=== PATIENT | female | born 1970 | race Caucasian/White ===

== ENCOUNTER → 2018-02-07 | Outpatient (CLI) | payer MEDICAID, MEDICARE ==
--- NOTE | 2018-02-07 11:29 | RADIOLOGY REPORT (SQ) ---
EXAM DESCRIPTION: MRI LT LOWER JOINT WITHOUT COMPLETED DATE/TIME: 02/07/2018 10:48 am REASON FOR STUDY: PAIN IN LEFT HIP (M25.552) M25.552 PAIN IN LEFT HIP PAIN IN LEFT HIP (M25.552) M25.552 PAIN IN LEFT HIP left hip grinding, clicking, stiffness numbness COMPARISON: 05/08/2014 MRI left hip TECHNIQUE: [employer] images acquired and stored on PACS. Multiplanar images to include fat sensitive s equences as T1, fluid sensitive sequences as T2/STIR and gradient echo sequences. Large FOV fat and f luid sensitive sequences include pelvis and opposite hip. LIMITATIONS: None. FINDINGS: BONE CORTEX AND MARROW: No generalized marrow replacement. No occult fracture. No worriso me bone lesions. LEFT HIP: FEMORAL HEAD: No occult fracture. Minimal osteophyte formation along the periphery of the left femor al head and bony acetabulum. Normal sphericity of femoral head/neck junction. No acetabular dysplasi a. No evidence femoroacetabular impingement. No significant effusion. ACETABULUM: No acetabular dysplasia. No subchondral cysts. LABRUM: No delamination. No paralabral cysts. The anterior superior labral tear seen on hip MR arth rogram 05/08/2014 is difficult to visualize on today's study. TROCHANTER: No trochanteric bursal effusion. No edema/fluid at the insertions of the gluteus medius and gluteus minimus. RIGHT HIP: Limited evaluation. No worrisome bone lesions. No significant effusion. PELVIS, LOWER LUMBAR SPINE, SACROILIAC JOINTS: PELVIS : No insufficiency/stress fractures. No significant degenerative changes. Sacroiliac joints normal. L SPINE: Limited view, unremarkable MUSCLES AND SOFT TISSUES: Adductors and piriformis normal. Abductors and greater trochanteric bursa n ormal without edema or fluid. Iliopsoas bursa without fluid. Hamstring attachments without edema or t ear. PELVIC SOFT TISSUES: No masses or adenopathy. Post hysterectomy SCIATIC NERVE: Identified, without masses or abnormal signal. OTHER: No other significant finding. IMPRESSION: Labral tear left hip seen on MR arthrogram 05/08/2014 is not identified on today's exam. No left hip paralabral cyst, left hip joint effusion or greater trochanteric effusion. Minimal left hip joint space narrowing and osteophyte formation TECHNICAL DOCUMENTATION: JOB ID: [id number] [employer] [employer]- All Rights Reserved Reading location - IP/workstation name: [email or web address]
== END ==
LOC: RAD 09:57
PROVIDERS: ATTEND Physician Assistant
DX: M25.552 Pain in left hip (principal)

== ENCOUNTER 2018-06-11 17:37 | Inpatient (IN) | payer MEDICARE ==
--- NOTE | 2018-06-11 18:17 | ER Document Report ---
ED Medical Screen (RME) - General Chief Complaint: Rectal Bleeding Stated Complaint: BLOODY STOOL Time Seen by Provider: 06/11/18 18:09 Primary Care Provider: TYRESE CONCEPCION PA [Primary Care Provider] - Follow up as needed Notes: RAPID MEDICAL EVALUATION DISCLOSURE I have seen this patient as part of a Rapid Medical Evaluation and, if applicable, placed any initially appropriate orders. The patient will be seen and fully evaluated, including a full history and physical exam, by a provider (in Main ED or Fast Track) when a room becomes available. 48-year-old female PMH COPD here with complaints of bright red bloody stools that started this morning. She has had about 6-7 bloody stools thus far. She has started to feel lightheaded and has also been having some epigastric burning sensation and lower abdominal cramping as of earlier today. Does not take any blood thinners. No previous history of GI bleed, liver disease, peptic ulcers, varices, or hemorrhoids. She does not drink daily but did have 2 glasses of [place] rum and coke last night. EXAM Mild epigastric TTP Mild rapp lower quadrant TTP No peritoneal signs TRAVEL OUTSIDE OF THE [place] IN LAST 30 DAYS: No - Related Data Allergies/Adverse Reactions: codeine [Codeine] Adverse Reaction (Verified 06/11/18 17:39) Past Medical History - Past Medical History Cardiac Medical History: Reports: Hx Hypercholesterolemia, Hx Hypertension Denies: Hx Coronary Artery Disease, Hx Heart Attack Pulmonary Medical History: Reports: Hx Bronchitis, Hx COPD, Hx Pneumonia Denies: Hx Asthma, Hx Tuberculosis Neurological Medical History: Reports: Hx Seizures - 2010. Denies: Hx Cerebrovascular Accident Endocrine Medical History: Reports: Hx Diabetes Mellitus Type 2 Renal/ Medical History: Denies: Hx Peritoneal Dialysis Musculoskeltal Medical History: Reports Hx Arthritis Psychiatric Medical History: Reports: Hx Bipolar Disorder, Hx Depression Past Surgical History: Reports: Hx Hysterectomy, Hx Orthopedic Surgery - Cervical fusion. Denies: Hx Pacemaker - Immunizations Hx Diphtheria, Pertussis, Tetanus Vaccination: No Physical Exam - Vital signs Vitals: Temp Pulse Resp BP Pulse Ox 98.8 F 88 18 150/90 H 99 06/11/18 17:49 06/11/18 17:49 06/11/18 17:49 06/11/18 17:49 06/11/18 17:49 Course - Vital Signs Vital signs: Temp Pulse Resp BP Pulse Ox 98.8 F 88 18 150/90 H 99 06/11/18 17:49 06/11/18 17:49 06/11/18 17:49 06/11/18 17:49 06/11/18 17:49 Doctor's Discharge - Discharge Referrals: TYRESE CONCEPCION PA [Primary Care Provider] - Follow up as needed
[2018-06-11 18:53] LABS: ABSOLUTE BASOPHILS # (AUTO) 0.1 10^3/uL (0.0-0.2); ABSOLUTE EOSINOPHILS # (AUTO) 0.2 10^3/uL (0.0-0.6); ABSOLUTE LYMPHOCYTES (AUTO) 2.7 10^3/uL (0.5-4.7); ABSOLUTE MONOCYTES (AUTO) 0.5 10^3/uL (0.1-1.4); ABSOLUTE NEUT (AUTO) 6.6 10^3/uL (1.7-8.2); BASOPHILS % (AUTO) 0.9 % (0-2); EOSINOPHILS % (AUTO) 1.6 % (0-6); HEMATOCRIT 44.3 % (36.0-47.0); LYMPHOCYTES % (AUTO) 26.6 % (13-45); MEAN CORPUSCULAR HEMOGLOBIN 29.2 pg (27.0-33.4); MEAN CORPUSCULAR VOLUME 86 fl (80-97); MONOCYTES % (AUTO) 5.4 % (3-13); PLATELET COUNT 360 10^3/uL (150-450); RED BLOOD COUNT 5.16 10^6/uL (3.72-5.28); RED CELL DISTRIBUTION WIDTH 13.6 % (11.5-14.0); SEGMENTED NEUTROPHILS % (AUTO) 65.5 % (42-78); TOTAL CELLS COUNTED % (AUTO) 100 %; WHITE BLOOD COUNT 10.1 10^3/uL (4.0-10.5)
[2018-06-11 18:59] LABS: INTERNATIONAL RATION (INR) 0.88; PROTHROMBIN TIME 12.4 SEC (11.4-15.4)
[2018-06-11 19:00] LABS: PARTIAL THROMBOPLASTIN TIME 38.9 SEC (23.5-35.8)
[2018-06-11 19:04] LABS: ALANINE AMINOTRANSFERASE 14 U/L (9-52); ALBUMIN 5.1 g/dL (3.5-5.0); ALKALINE PHOSPHATASE 139 U/L (38-126); ANION GAP 11 (5-19); ASPARTATE AMINO TRANSFERASE 19 U/L (14-36); BILIRUBIN,DIRECT 0.2 mg/dL (0.0-0.4); BILIRUBIN,TOTAL 0.4 mg/dL (0.2-1.3); BLOOD UREA NITROGEN 7 mg/dL (7-20); CALCIUM 10.6 mg/dL (8.4-10.2); CARBON DIOXIDE 29 mmol/L (22-30); CHLORIDE 102 mmol/L (98-107); GLUCOSE 87 mg/dL (75-110); LIPASE 50.7 U/L (23-300); POTASSIUM 4.1 mmol/L (3.6-5.0); SODIUM 141.9 mmol/L (137-145); TOTAL PROTEIN 8.3 g/dL (6.3-8.2)
[2018-06-11] MEDS ORDERED: PANTOPRAZOLE SODIUM 40 MG VIAL IV ONE (19:14)
[2018-06-11] MEDS ORDERED: NORMAL SALINE 1000 ML 1,000 ML IV ONE (19:17)
--- NOTE | 2018-06-11 19:54 | ER Document Report ---
ED General - General Chief Complaint: Rectal Bleeding Stated Complaint: BLOODY STOOL Time Seen by Provider: 06/11/18 18:09 Primary Care Provider: TYRESE CONCEPCION PA [NO LOCAL MD] - Follow up as needed TRAVEL OUTSIDE OF THE [place] IN LAST 30 DAYS: No - HPI Notes: Patient is a 48-year-old female that presents to the emergency department for chief complaint of GI bleed. Patient states this morning she started having bright red rectal bleeding. She reports 6-7 episodes of loose watery stool that is bright red. She denies any pain with bowel movements. She states yesterday she had half a shot of alcohol and usually does not consume alcohol. She reports some mild epigastric burning over the last 2-3 days. She denies any associated nausea or vomiting. She states she had a colonoscopy about 10 years ago that was normal and denies any history of rectal bleeding in the past. She denies any fevers or chills. She has also endorsing an abdominal pain that she describes as crampy, intermittent and diffuse. She denies aggravating or relieving factors to her pain. She jermaine es feeling any lightheadedness, palpitations or shortness of breath. Past Medical History: COPD Past Surgical History: Negative Social History: Daily tobacco. Occasional alcohol. Denies drug use. Family History: Reviewed and noncontributory for presenting illness Allergies: Reviewed, see documented allergy list. REVIEW OF SYSTEMS: CONSTITUTIONAL : No fever No chills No diaphoresis No recent illness EENT: No vision changes No congestion No sore throat CARDIOVASCULAR: No chest pain No palpitations RESPIRATORY: No shortness of breath No cough No difficulty breathing GASTROINTESTINAL: abdominal pain No nausea No vomiting No diarrhea Blood in stool GENITOURINARY: No dysuria No hematuria No difficulty urinating MUSCULOSKELETAL: No back pain No leg pain No arm pain SKIN: No rashes No lesions LYMPHATIC: No swollen, enlarged glands. NEUROLOGICAL: No lightheadedness No headache No weakness No paresthesias PSYCHIATRIC: No anxiety No depression PHYSICAL EXAMINATION: Vital signs reviewed, nursing noted reviewed. GENERAL: Well-appearing, well-nourished and in no acute distress. HEAD: Atraumatic, normocephalic. EYES: Eyes appear normal, extraocular movements intact, sclera anicteric, conjunctiva are normal. ENT: nares patent, oropharynx clear without exudates. Moist mucous membranes. NECK: Normal range of motion, supple without lymphadenopathy LUNGS: Breath sounds clear to auscultation bilaterally and equal. No wheezes rales or rhonchi. HEART: Regular rate and rhythm without murmurs ABDOMEN: Soft, mild diffuse tenderness, normoactive bowel sounds. No rebound, guarding, or rigidity. No masses appreciated. EXTREMITIES: Nontender, good range of motion, no pitting or edema. NEUROLOGICAL: No focal neurological deficits. Moves all extremities spontaneously Motor and sensory grossly intact on exam. PSYCH: Normal mood, normal affect. SKIN: Warm, Dry, normal turgor, no rashes or lesions noted on exposed skin - Related Data Allergies/Adverse Reactions: codeine [Codeine] Adverse Reaction (Verified 06/11/18 17:39) Past Medical History - Social History Smoking Status: Current Every Day Smoker Family History: Reviewed & Not Pertinent Patient has suicidal ideation: No Patient has homicidal ideation: No - Past Medical History Cardiac Medical History: Reports: Hx Hypercholesterolemia, Hx Hypertension Denies: Hx Coronary Artery Disease, Hx Heart Attack Pulmonary Medical History: Reports: Hx Bronchitis, Hx COPD, Hx Pneumonia Denies: Hx Asthma, Hx Tuberculosis Neurological Medical History: Reports: Hx Seizures - 2009, 2010. Denies: Hx Cerebrovascular Accident Endocrine Medical History: Reports: Hx Diabetes Mellitus Type 2 Renal/ Medical History: Denies: Hx Peritoneal Dialysis Musculoskeletal Medical History: Reports Hx Arthritis Psychiatric Medical History: Reports: Hx Bipolar Disorder, Hx Depression Past Surgical History: Reports: Hx Hysterectomy, Hx Orthopedic Surgery - Cervical fusion. Denies: Hx Pacemaker - Immunizations Hx Diphtheria, Pertussis, Tetanus Vaccination: No Physical Exam - Vital signs Vitals: Temp Pulse Resp BP Pulse Ox 98.8 F 88 18 150/90 H 99 06/11/18 17:49 06/11/18 17:49 06/11/18 17:49 06/11/18 17:49 06/11/18 17:49 Course - Re-evaluation Re-evalutation: 06/11/18 19:54 Vitals reviewed. Nursing notes reviewed. Patient is afebrile and nontoxic in appearance. She has some mild diffuse abdominal tenderness with no rigidity guarding or peritoneal signs. Patient's hemoglobin is stable. She is not tachycardic. She was given 1 L of IV fluid and IV Protonix for her complaint of GI bleed and epigastric discomfort. Patient CT scan is currently pending. 06/11/18 20:51 Patient's hemoglobin is stable. She has had large bloody bowel movement in the ED. She has remained hemodynamically stable. Patient CT scan shows colitis and in the setting of no leukocytosis it is likely inflammatory in nature. Antibiotics will be held at this time. Patients care was discussed with Dr. Paige who agrees to perform colonoscopy if needed on this patient. Patient's care also discussed with Dr. Hahn who accepts admission for further monitoring of her GI hemorrhage. Patient in agreement with admission and stable at time of admission. Laboratory 06/11/18 06/11/18 06/11/18 18:46 18:46 18:46 WBC 10.1 RBC 5.16 Hgb 15.0 Hct 44.3 MCV 86 MCH 29.2 MCHC 34.0 RDW 13.6 Plt Count 360 Seg Neutrophils % 65.5 Lymphocytes % 26.6 Monocytes % 5.4 Eosinophils % 1.6 Basophils % 0.9 Absolute Neutrophils 6.6 Absolute Lymphocytes 2.7 Absolute Monocytes 0.5 Absolute Eosinophils 0.2 Absolute Basophils 0.1 PT 12.4 INR 0.88 APTT 38.9 H Sodium 141.9 Potassium 4.1 Chloride 102 Carbon Dioxide 29 Anion Gap 11 BUN 7 Creatinine 0.84 Est GFR ( Amer) > 60 Est GFR (Non-Af Amer) > 60 Glucose 87 Calcium 10.6 H Total Bilirubin 0.4 Direct Bilirubin 0.2 Neonat Total Bilirubin Not Reportable Neonat Direct Bilirubin Not Reportable Neonat Indirect Bili Not Reportable AST 19 ALT 14 Alkaline Phosphatase 139 H Total Protein 8.3 H Albumin 5.1 H Lipase 50.7 Stool Occult Blood Serum Alcohol 06/11/18 06/11/18 18:46 19:26 WBC RBC Hgb Hct MCV MCH MCHC RDW Plt Count Seg Neutrophils % Lymphocytes % Monocytes % Eosinophils % Basophils % Absolute Neutrophils Absolute Lymphocytes Absolute Monocytes Absolute Eosinophils Absolute Basophils PT INR APTT Sodium Potassium Chloride Carbon Dioxide Anion Gap BUN Creatinine Est GFR ( Amer) Est GFR (Non-Af Amer) Glucose Calcium Total Bilirubin Direct Bilirubin Neonat Total Bilirubin Neonat Direct Bilirubin Neonat Indirect Bili AST ALT Alkaline Phosphatase Total Protein Albumin Lipase Stool Occult Blood POSITIVE Serum Alcohol < 10 Abdomen/Pelvis CT 06/11/18 18:14 IMPRESSION: Inflammatory changes involving the colon, differential possibilities include inflammatory and infectious etiologies. No defined fluid collections. No pneumatosis. - Vital Signs Vital signs: Temp Pulse Resp BP Pulse Ox 98.8 F 88 18 127/80 H 100 06/11/18 17:49 06/11/18 17:49 06/11/18 17:49 06/11/18 20:40 06/11/18 20:40 - Laboratory Result Diagrams: 06/11/18 18:46 06/11/18 18:46 Laboratory results interpreted by me: 06/11/18 06/11/18 18:46 18:46 APTT 38.9 H Calcium 10.6 H Alkaline Phosphatase 139 H Total Protein 8.3 H Albumin 5.1 H Discharge - Discharge Clinical Impression: Colitis GI bleeding Qualifiers: GI bleed type/associated pathology: unspecified gastrointestinal hemorrhage type Qualified Code(s): K92.2 - Gastrointestinal hemorrhage, unspecified Condition: Stable Disposition: ADMITTED INPATIENT Admitting Provider: Hospitalist Unit Admitted: [facility]
--- NOTE | 2018-06-11 20:24 | RADIOLOGY REPORT (SQ) ---
EXAM DESCRIPTION: CT ABDOMEN PELVIS WITH IV CONTRAST COMPLETED DATE/TME: 06/11/2018 18:14 CLINICAL HISTORY: 48 years, Female, lower abd pain, epig pain, bright red GI bleed Comparison: None TECHNIQUE: Contiguous axial CT images of the abdomen and pelvis were obtained. Sagittal and coronal reformats were reviewed. This exam was performed according to our departmental dose-optimization program, which includes automated exposure control, adjustment of the mA and/or kV according to patient size and/or use of iterative reconstruction technique. FINDINGS: Lung bases: Clear. Liver:Unremarkable. No focal liver lesion. Gallbladder:Gallstones. No CT evidence of cholecystitis. Spleen:Unremarkable Pancreas: Pancreas is unremarkable. Adrenal glands:Within normal limits. Kidneys/ureters:Within normal limits Stomach/small bowel/colon: Stomach is unremarkable. Small bowel is unremarkable. Circumferential wall thickening involving the splenic flexure of the colon in the hepatic flexure of the colon. No pneumatosis. No diverticula. Appendix: No evidence of appendicitis. Peritoneum: No free fluid. Vascular structures: within normal limits. The SMA branches are well opacified with contrast. Lymph nodes: No abnormal lymph nodes. Bladder:Unremarkable. Pelvic organs: No acute abnormality Bones: No acute osseous abnormality. Soft tissues: Unremarkable.. IMPRESSION: Inflammatory changes involving the colon, differential possibilities include inflammatory and infectious etiologies. No defined fluid collections. No pneumatosis.
[2018-06-11] MEDS ORDERED: IPRATROPIUM/ALBUTEROL 0.5-2.5 MG/3 ML AMPUL NEB PRN (20:56)
[2018-06-11] MEDS ORDERED: NORMAL SALINE 1000 ML 1,000 ML IV SCH (21:00)
[2018-06-11] MEDS ORDERED: NORMAL SALINE 1000 ML 1,000 ML IV PRN (21:30)
[2018-06-11] MEDS: HEPARIN SOD (PORCINE) 5,000 UNIT/ML 1 ML SYRINGE SUBCUT SCH (21:40)
[2018-06-11] MEDS: METRONIDAZOLE 500 MG TABLET PO SCH (21:41)
[2018-06-11] MEDS: CIPROFLOXACIN 400 MG/D5W RTU 400 MG/200 ML RTUPB IV SCH (21:41)
[2018-06-11] MEDS: ACETAMINOPHEN 325 MG TABLET PO PRN (21:44)
[2018-06-11] MEDS ORDERED: TRAZODONE HCL 50 MG TABLET PO SCH (22:00)
--- NOTE | 2018-06-11 22:43 | PDOC CONSULTATION ---
History of Present Illness Admission Date/PCP: 06/11/18 21:24 CESAR SMITH MD Patient complains of: abdominal pains History of Present Illness: OLIVIER GREY is a 48 year old female with history of anxiety takes trazedon,Hypertension and takes lisinopril woke up this am with abdominal cramps. Had a BM which was bloody. Associated nausea and headache. Haed a few drinks with her daughter last night. Denies fever/chills nor lightheadedness. Went to ED and had a CT scan which showed thickening of colon/hepatic flexure. Had hysterectomy. Smoker with COPD. Claims she had history of IBD when she was younger and was placed on Xantac. Past Medical History Cardiac Medical History: Reports: Hyperlipidema, Hypertension Denies: Coronary Artery Disease, Myocardial Infarction Pulmonary Medical History: Reports: Bronchitis, Chronic Obstructive Pulmonary Disease (COPD), Pneumonia Denies: Asthma, Tuberculosis Neurological Medical History: Reports: Seizures - 2010 Endocrine Medical History: Reports: Diabetes Mellitus Type 2 Musculoskeltal Medical History: Reports: Arthritis Psychiatric Medical History: Reports: Bipolar Disorder, Depression Hematology: Denies: Anemia Past Surgical History Past Surgical History: Reports: Hysterectomy, Orthopedic Surgery - Cervical fusion Denies: Pacemaker Social History Smoking Status: Current Every Day Smoker Frequency of Alcohol Use: None Hx Recreational Drug Use: No Hx Prescription Drug Abuse: No Family History Family History: Reviewed & Not Pertinent Parental Family History Reviewed: Yes - mother of COPD(smoker) Children Family History Reviewed: No Sibling(s) Family History Reviewed.: No Medication/Allergy Home Medications: Gabapentin 600 mg PO TID 03/18/13 Venlafaxine HCl [Venlafaxine HCl ER] 150 mg PO BID 03/18/13 Diazepam [Valium] 10 mg PO TIDP PRN 07/17/13 Lurasidone HCl [Latuda] 40 mg PO DAILY 07/17/13 Omeprazole [Prilosec] 20 mg PO BID #30 capsule. 07/18/13 Benzonatate [Tessalon Perles 100 mg Capsule] 100 mg PO Q8HP PRN #20 capsule 10/08/13 Ipratropium/Albuterol Sulfate [Combivent Respimat 4 gm Mdi] 1 puff IH Q6HP #1 aer.w.adap 10/08/13 Trazodone HCl [Desyrel 50 mg Tablet] 1 tab PO QHS 10/18/13 Allergies/Adverse Reactions: codeine [Codeine] Adverse Reaction (Verified 06/11/18 17:39) Review of Systems Constitutional: PRESENT: as per HPI Eyes: PRESENT: other - no visual/hearing changes Cardiovascular: PRESENT: other - no chest pains/cough Gastrointestinal: PRESENT: abdominal pain, hematochezia, nausea Genitourinary: PRESENT: other - no dysuria Neurological: PRESENT: convulsions Psychiatric: PRESENT: anxiety, depression Physical Exam Vital Signs: Temp Pulse Resp BP Pulse Ox 98.8 F 88 18 130/76 H 98 06/11/18 17:49 06/11/18 17:49 06/11/18 17:49 06/11/18 21:00 06/11/18 21:01 Intake & Output 06/10/18 06/11/18 06/12/18 06:59 06:59 06:59 Intake Total 1000 Balance 1000 Weight 75.5 kg General appearance: PRESENT: mild distress Head exam: PRESENT: atraumatic Eye exam: PRESENT: conjunctiva pink Mouth exam: PRESENT: moist Neck exam: PRESENT: full ROM Respiratory exam: PRESENT: clear to auscultation chava Cardiovascular exam: PRESENT: RRR Pulses: PRESENT: normal radial pulses Vascular exam: PRESENT: normal capillary refill GI/Abdominal exam: PRESENT: soft, tenderness - mild diffuse tenderness Rectal exam: PRESENT: deferred Extremities exam: PRESENT: full ROM Musculoskeletal exam: PRESENT: ambulatory Neurological exam: PRESENT: alert, oriented to person, oriented to place, oriented to time, oriented to situation Psychiatric exam: PRESENT: appropriate affect Skin exam: PRESENT: normal color, warm Results Laboratory Results: 06/11/18 18:46 06/11/18 18:46 06/11/18 06/11/18 06/11/18 18:46 18:46 19:26 WBC 10.1 RBC 5.16 Hgb 15.0 Hct 44.3 MCV 86 MCH 29.2 MCHC 34.0 RDW 13.6 Plt Count 360 Seg Neutrophils % 65.5 Lymphocytes % 26.6 Monocytes % 5.4 Eosinophils % 1.6 Basophils % 0.9 Absolute Neutrophils 6.6 Absolute Lymphocytes 2.7 Absolute Monocytes 0.5 Absolute Eosinophils 0.2 Absolute Basophils 0.1 Sodium 141.9 Potassium 4.1 Chloride 102 Carbon Dioxide 29 Anion Gap 11 BUN 7 Creatinine 0.84 Est GFR ( Amer) > 60 Est GFR (Non-Af Amer) > 60 Glucose 87 Calcium 10.6 H Total Bilirubin 0.4 AST 19 ALT 14 Alkaline Phosphatase 139 H Total Protein 8.3 H Albumin 5.1 H Lipase 50.7 Stool Occult Blood POSITIVE Impressions: Abdomen/Pelvis CT 06/11/18 18:14 IMPRESSION: Inflammatory changes involving the colon, differential possibilities include inflammatory and infectious etiologies. No defined fluid collections. No pneumatosis. Assessment & Plan - Diagnosis (1) Colitis Is this a current diagnosis for this admission?: Yes (2) GI bleeding Qualifiers: GI bleed type/associated pathology: unspecified gastrointestinal hemorrhage type Qualified Code(s): K92.2 - Gastrointestinal hemorrhage, unspecified Is this a current diagnosis for this admission?: Yes - Time Time Spent: 30 to 50 Minutes - Inpatient Certification Medical Necessity: Need For IV Fluids, Need for Pain Control, Need for IV Antibiotics, Risk of Complication if Not Cared For in Hospital - Plan Summary Plan Summary: Continue monitorH/H/wbc Bowel rest IV antibiotic will follow with you
[2018-06-12 00:25] LABS: ABSOLUTE EOSINOPHILS # (AUTO) 0.1 10^3/uL (0.0-0.6); ABSOLUTE LYMPHOCYTES (AUTO) 2.7 10^3/uL (0.5-4.7); ABSOLUTE MONOCYTES (AUTO) 0.5 10^3/uL (0.1-1.4); ABSOLUTE NEUT (AUTO) 5.8 10^3/uL (1.7-8.2); BASOPHILS % (AUTO) 0.3 % (0-2); EOSINOPHILS % (AUTO) 1.6 % (0-6); HEMATOCRIT 38.7 % (36.0-47.0); HEMOGLOBIN 13.3 g/dL (12.0-15.5); LYMPHOCYTES % (AUTO) 29.8 % (13-45); MEAN CORPUSCULAR HEMOGLOBIN 29.4 pg (27.0-33.4); MEAN CORPUSCULAR HGB CONC 34.3 g/dL (32.0-36.0); MEAN CORPUSCULAR VOLUME 86 fl (80-97); MONOCYTES % (AUTO) 5.3 % (3-13); PLATELET COUNT 282 10^3/uL (150-450); RED BLOOD COUNT 4.52 10^6/uL (3.72-5.28); RED CELL DISTRIBUTION WIDTH 13.1 % (11.5-14.0); TOTAL CELLS COUNTED % (AUTO) 100 %; WHITE BLOOD COUNT 9.2 10^3/uL (4.0-10.5)
--- NOTE | 2018-06-12 05:25 | PDOC H&P ---
History of Present Illness Admission Date/PCP: 06/11/18 21:24 CESAR SMITH MD Patient complains of: Bright red blood per rectum History of Present Illness: LOIVIER GREY is a 48 year old female with history of COPD, hypertension, dyslipidemia, depression, anxiety and tobacco dependence. She presents 8 hours after the onset of several episodes of bright red blood per rectum prompting evaluation in the emergency room. She had no former constipation, nausea vomiting diarrhea or fever. Remote colonoscopy revealed diverticulosis and external hemorrhoids. CT abdomen reveals colitis, Hemoccult stool is positive and she is referred to the hospitalist for admission. She denies recent change in medications and is pain-free. Past Medical History Cardiac Medical History: Reports: Hyperlipidema, Hypertension Denies: Coronary Artery Disease, Myocardial Infarction Pulmonary Medical History: Reports: Bronchitis, Chronic Obstructive Pulmonary Disease (COPD), Pneumonia Denies: Asthma, Tuberculosis Neurological Medical History: Reports: Seizures - 2010 Endocrine Medical History: Reports: Diabetes Mellitus Type 2 Musculoskeltal Medical History: Reports: Arthritis Psychiatric Medical History: Reports: Bipolar Disorder, Depression, Tobacco Dependency Hematology: Denies: Anemia Past Surgical History Past Surgical History: Reports: Hysterectomy, Orthopedic Surgery - Cervical fusion Denies: Pacemaker Social History Information Source: Patient, [facility] Records Lives with: Family Smoking Status: Current Every Day Smoker Cigarettes Packs Per Day: 1.5 Number of Years Smokin Frequency of Alcohol Use: Rare Hx Recreational Drug Use: No Hx Prescription Drug Abuse: No - Advance Directive Resuscitation Status: Full Code Family History Family History: COPD Parental Family History Reviewed: Yes Children Family History Reviewed: Yes Sibling(s) Family History Reviewed.: Yes Medication/Allergy Home Medications: Gabapentin 600 mg PO TID 03/18/13 Venlafaxine HCl [Venlafaxine HCl ER] 150 mg PO BID 03/18/13 Diazepam [Valium] 10 mg PO TIDP PRN 07/17/13 Lurasidone HCl [Latuda] 40 mg PO DAILY 07/17/13 Omeprazole [Prilosec] 20 mg PO BID #30 capsule. 07/18/13 Benzonatate [Tessalon Perles 100 mg Capsule] 100 mg PO Q8HP PRN #20 capsule 10/08/13 Ipratropium/Albuterol Sulfate [Combivent Respimat 4 gm Mdi] 1 puff IH Q6HP #1 aer.w.adap 10/08/13 Trazodone HCl [Desyrel 50 mg Tablet] 1 tab PO QHS 10/18/13 Allergies/Adverse Reactions: codeine [Codeine] Adverse Reaction (Verified 06/11/18 17:39) Review of Systems Constitutional: ABSENT: chills, fever(s), headache(s), weight gain, weight loss Eyes: ABSENT: visual disturbances Ears: ABSENT: hearing changes Cardiovascular: ABSENT: chest pain, dyspnea on exertion, edema, orthropnea, palpitations Respiratory: ABSENT: cough, hemoptysis Gastrointestinal: ABSENT: abdominal pain, constipation, diarrhea, hematemesis, hematochezia, nausea, vomiting Genitourinary: ABSENT: dysuria, hematuria Musculoskeletal: ABSENT: joint swelling Integumentary: ABSENT: rash, wounds Neurological: ABSENT: abnormal gait, abnormal speech, confusion, dizziness, focal weakness, syncope Psychiatric: ABSENT: anxiety, depression, homidical ideation, suicidal ideation Endocrine: ABSENT: cold intolerance, heat intolerance, polydipsia, polyuria Hematologic/Lymphatic: ABSENT: easy bleeding, easy bruising Physical Exam Vital Signs: Temp Pulse Resp BP Pulse Ox 97.6 F 70 18 143/67 H 97 06/12/18 03:57 06/12/18 03:57 06/12/18 03:57 06/12/18 03:57 06/12/18 03:57 Intake & Output 06/10/18 06/11/18 06/12/18 11:59 11:59 11:59 Intake Total 1200 Balance 1200 Weight 73.7 kg General appearance: PRESENT: no acute distress, well-developed, well-nourished Head exam: PRESENT: atraumatic, normocephalic Eye exam: PRESENT: conjunctiva pink, EOMI, PERRLA. ABSENT: scleral icterus Ear exam: PRESENT: normal external ear exam Mouth exam: PRESENT: moist, tongue midline Neck exam: ABSENT: carotid bruit, JVD, lymphadenopathy, thyromegaly Respiratory exam: PRESENT: clear to auscultation chava. ABSENT: rales, rhonchi, wheezes Cardiovascular exam: PRESENT: RRR. ABSENT: diastolic murmur, rubs, systolic murmur Pulses: PRESENT: normal dorsalis pedis pul Vascular exam: PRESENT: normal capillary refill GI/Abdominal exam: PRESENT: normal bowel sounds, soft. ABSENT: distended, guarding, mass, organolmegaly, rebound, tenderness Rectal exam: PRESENT: deferred Extremities exam: PRESENT: full ROM. ABSENT: calf tenderness, clubbing, pedal edema Neurological exam: PRESENT: alert, awake, oriented to person, oriented to place, oriented to time, oriented to situation, CN II-XII grossly intact. ABSENT: motor sensory deficit Psychiatric exam: PRESENT: appropriate affect, normal mood. ABSENT: homicidal ideation, suicidal ideation Skin exam: PRESENT: dry, intact, warm. ABSENT: cyanosis, rash Results Laboratory Results: 06/12/18 00:17 06/11/18 18:46 06/11/18 06/11/18 06/11/18 18:46 18:46 19:26 WBC 10.1 RBC 5.16 Hgb 15.0 Hct 44.3 MCV 86 MCH 29.2 MCHC 34.0 RDW 13.6 Plt Count 360 Seg Neutrophils % 65.5 Lymphocytes % 26.6 Monocytes % 5.4 Eosinophils % 1.6 Basophils % 0.9 Absolute Neutrophils 6.6 Absolute Lymphocytes 2.7 Absolute Monocytes 0.5 Absolute Eosinophils 0.2 Absolute Basophils 0.1 Sodium 141.9 Potassium 4.1 Chloride 102 Carbon Dioxide 29 Anion Gap 11 BUN 7 Creatinine 0.84 Est GFR ( Amer) > 60 Est GFR (Non-Af Amer) > 60 Glucose 87 Calcium 10.6 H Total Bilirubin 0.4 AST 19 ALT 14 Alkaline Phosphatase 139 H Total Protein 8.3 H Albumin 5.1 H Lipase 50.7 Stool Occult Blood POSITIVE 06/12/18 00:17 WBC 9.2 RBC 4.52 Hgb 13.3 Hct 38.7 MCV 86 MCH 29.4 MCHC 34.3 RDW 13.1 Plt Count 282 Seg Neutrophils % 63.0 Lymphocytes % 29.8 Monocytes % 5.3 Eosinophils % 1.6 Basophils % 0.3 Absolute Neutrophils 5.8 Absolute Lymphocytes 2.7 Absolute Monocytes 0.5 Absolute Eosinophils 0.1 Absolute Basophils 0.0 Sodium Potassium Chloride Carbon Dioxide Anion Gap BUN Creatinine Est GFR ( Amer) Est GFR (Non-Af Amer) Glucose Calcium Total Bilirubin AST ALT Alkaline Phosphatase Total Protein Albumin Lipase Stool Occult Blood Impressions: Abdomen/Pelvis CT 06/11/18 18:14 IMPRESSION: Inflammatory changes involving the colon, differential possibilities include inflammatory and infectious etiologies. No defined fluid collections. No pneumatosis. Assessment & Plan - Diagnosis (1) Colitis Is this a current diagnosis for this admission?: Yes Plan: Presumed infectious, Cipro and Flagyl ordered, follow-up stool studies and CBC (2) GI bleeding Qualifiers: GI bleed type/associated pathology: unspecified gastrointestinal hemorrhage type Qualified Code(s): K92.2 - Gastrointestinal hemorrhage, unspecified Is this a current diagnosis for this admission?: Yes Plan: History of diverticulosis and external hemorrhoids, follow-up CBC and surgical consult (3) Tobacco abuse Is this a current diagnosis for this admission?: Yes Plan: Tobacco Dependence patient received tobacco cessation counseling and offered nicotine replacement options - Time Time Spent: 30 to 50 Minutes - Inpatient Certification Medical Necessity: Need Close Monitoring Due to Risk of Patient Decompensation
[2018-06-12 06:19] LABS: ABSOLUTE EOSINOPHILS # (AUTO) 0.2 10^3/uL (0.0-0.6); ABSOLUTE LYMPHOCYTES (AUTO) 1.9 10^3/uL (0.5-4.7); ABSOLUTE MONOCYTES (AUTO) 0.4 10^3/uL (0.1-1.4); ABSOLUTE NEUT (AUTO) 4.3 10^3/uL (1.7-8.2); BASOPHILS % (AUTO) 0.5 % (0-2); EOSINOPHILS % (AUTO) 2.7 % (0-6); HEMATOCRIT 38.9 % (36.0-47.0); HEMOGLOBIN 13.4 g/dL (12.0-15.5); LYMPHOCYTES % (AUTO) 27.8 % (13-45); MEAN CORPUSCULAR HEMOGLOBIN 29.3 pg (27.0-33.4); MEAN CORPUSCULAR HGB CONC 34.4 g/dL (32.0-36.0); MEAN CORPUSCULAR VOLUME 85 fl (80-97); MONOCYTES % (AUTO) 6.4 % (3-13); PLATELET COUNT 279 10^3/uL (150-450); RED BLOOD COUNT 4.56 10^6/uL (3.72-5.28); RED CELL DISTRIBUTION WIDTH 13.3 % (11.5-14.0); SEGMENTED NEUTROPHILS % (AUTO) 62.6 % (42-78); TOTAL CELLS COUNTED % (AUTO) 100 %; WHITE BLOOD COUNT 6.9 10^3/uL (4.0-10.5)
[2018-06-12] MEDS: HEPARIN SOD (PORCINE) 5,000 UNIT/ML 1 ML SYRINGE SUBCUT SCH (06:33)
[2018-06-12] MEDS ORDERED: METRONIDAZOLE 500 MG TABLET ONE (06:35)
[2018-06-12] MEDS: METRONIDAZOLE 500 MG TABLET PO SCH ×2 (06:40→10:19)
[2018-06-12] MEDS: ACETAMINOPHEN 325 MG TABLET PO PRN (06:42)
[2018-06-12 08:31] VITALS: BP 126/63
[2018-06-12] MEDS: CIPROFLOXACIN 400 MG/D5W RTU 400 MG/200 ML RTUPB IV SCH (10:19)
--- NOTE | 2018-06-12 11:00 | PDOC PROGRESS REPORT ---
Subjective Progress Note for:: 06/12/18 Subjective:: No further bleeding; patient feels well; excited to be going home. She has no complaints. Reason For Visit: LOWER GI BLEED COLITIS Physical Exam Vital Signs: Temp Pulse Resp BP Pulse Ox 97.6 F 74 15 126/63 H 97 06/12/18 10:27 06/12/18 10:27 06/12/18 10:27 06/12/18 10:27 06/12/18 10:27 Intake & Output 06/11/18 06/12/18 06/13/18 06:59 06:59 06:59 Intake Total 1400 Output Total 150 Balance 1250 Weight 73.7 kg General appearance: PRESENT: no acute distress GI/Abdominal exam: PRESENT: other - Soft nontender no peritoneal signs no rigidity Results Laboratory Results: 06/12/18 05:34 06/11/18 18:46 06/11/18 06/11/18 06/11/18 18:46 18:46 19:26 WBC 10.1 RBC 5.16 Hgb 15.0 Hct 44.3 MCV 86 MCH 29.2 MCHC 34.0 RDW 13.6 Plt Count 360 Seg Neutrophils % 65.5 Lymphocytes % 26.6 Monocytes % 5.4 Eosinophils % 1.6 Basophils % 0.9 Absolute Neutrophils 6.6 Absolute Lymphocytes 2.7 Absolute Monocytes 0.5 Absolute Eosinophils 0.2 Absolute Basophils 0.1 Sodium 141.9 Potassium 4.1 Chloride 102 Carbon Dioxide 29 Anion Gap 11 BUN 7 Creatinine 0.84 Est GFR ( Amer) > 60 Est GFR (Non-Af Amer) > 60 Glucose 87 Calcium 10.6 H Total Bilirubin 0.4 AST 19 ALT 14 Alkaline Phosphatase 139 H Total Protein 8.3 H Albumin 5.1 H Lipase 50.7 Stool Occult Blood POSITIVE 06/12/18 06/12/18 00:17 05:34 WBC 9.2 6.9 RBC 4.52 4.56 Hgb 13.3 13.4 Hct 38.7 38.9 MCV 86 85 MCH 29.4 29.3 MCHC 34.3 34.4 RDW 13.1 13.3 Plt Count 282 279 Seg Neutrophils % 63.0 62.6 Lymphocytes % 29.8 27.8 Monocytes % 5.3 6.4 Eosinophils % 1.6 2.7 Basophils % 0.3 0.5 Absolute Neutrophils 5.8 4.3 Absolute Lymphocytes 2.7 1.9 Absolute Monocytes 0.5 0.4 Absolute Eosinophils 0.1 0.2 Absolute Basophils 0.0 0.0 Sodium Potassium Chloride Carbon Dioxide Anion Gap BUN Creatinine Est GFR ( Amer) Est GFR (Non-Af Amer) Glucose Calcium Total Bilirubin AST ALT Alkaline Phosphatase Total Protein Albumin Lipase Stool Occult Blood Impressions: Abdomen/Pelvis CT 06/11/18 18:14 IMPRESSION: Inflammatory changes involving the colon, differential possibilities include inflammatory and infectious etiologies. No defined fluid collections. No pneumatosis. Assessment & Plan - Diagnosis (1) Colitis Is this a current diagnosis for this admission?: Yes Plan: Impression: Clinically improved; no symptoms at this time; hemoglobin stable at 12.9; likely mild colitis Recommendations 1. Patient has a history of IBS; last colonoscopy [address] New with no pathologic findings according to patient 2. I think patient can safely be managed on an outpatient basis; she is not interested in having a repeat colonoscopy at this time ;I can see the patient on an outpatient basis to arrange for colonoscopy after discharge. 3. Patient was comfortable with the plan; surgery will sign off; call again if needed (2) Tobacco abuse Is this a current diagnosis for this admission?: Yes
--- NOTE | 2018-06-12 14:47 | PDOC DISCHARGE SUMMARY ---
General - Admit/Disc Date/PCP Admission Date/Primary Care Provider: 06/11/18 21:24 CESAR SMITH MD Discharge Date: 06/12/18 - Discharge Diagnosis (1) Colitis Is this a current diagnosis for this admission?: Yes Summary: She was started on Cipro and Flagyl and has responded quickly. She is not having any more abdominal pain. She is eating and drinking without difficulty and wanted to go home. Her diarrhea has stopped abruptly. (2) GI bleeding Is this a current diagnosis for this admission?: Yes Summary: She was having some blood in her stool but this stopped abruptly. She is not having any more diarrhea. She was not interested in colonoscopy at this time. She will follow-up with surgery as an outpatient to see about getting one arranged. - Additional Information Resuscitation Status: Full Code Discharge Diet: Cardiac Discharge Activity: Activity As Tolerated Prescriptions: Ciprofloxacin HCl [Cipro 500 mg Tablet] 500 mg PO BID #20 tablet Metronidazole [Flagyl 500 mg Tablet] 500 mg PO Q8 #30 tablet Home Medications: Gabapentin 600 mg PO TID 03/18/13 Venlafaxine HCl [Venlafaxine HCl ER] 150 mg PO BID 03/18/13 Diazepam [Valium] 10 mg PO TIDP PRN 07/17/13 Lurasidone HCl [Latuda] 40 mg PO DAILY 07/17/13 Omeprazole [Prilosec] 20 mg PO BID #30 capsule. 07/18/13 Benzonatate [Tessalon Perles 100 mg Capsule] 100 mg PO Q8HP PRN #20 capsule 10/08/13 Ipratropium/Albuterol Sulfate [Combivent Respimat 4 gm Mdi] 1 puff IH Q6HP #1 aer.w.adap 10/08/13 Trazodone HCl [Desyrel 50 mg Tablet] 1 tab PO QHS 10/18/13 Ciprofloxacin HCl [Cipro 500 mg Tablet] 500 mg PO BID #20 tablet 06/12/18 Metronidazole [Flagyl 500 mg Tablet] 500 mg PO Q8 #30 tablet 06/12/18 History of Present Illness History of Present Illness: OLIVIER GREY is a 48 year old female with history of COPD, hypertension, dyslipidemia, depression, anxiety and tobacco dependence. She presents 8 hours after the onset of several episodes of bright red blood per rectum prompting evaluation in the emergency room. She had no former constipation, nausea vomiting diarrhea or fever. Remote colonoscopy revealed diverticulosis and external hemorrhoids. CT abdomen reveals colitis, Hemoccult stool is positive and she is referred to the hospitalist for admission. She denies recent change in medications and is pain-free. Hospital Course Hospital Course: Her diarrhea stopped abruptly. She is afebrile. She is having no more GI discomfort. She wants to go home. She is not interested in colonoscopy here. She saw surgery in consultation and is planning on following up with him as an outpatient. She is going to finish up a course of Cipro and Flagyl at home. Her labs and examination were reassuring and she was discharged in good condition. Physical Exam Vital Signs: Temp Pulse Resp BP Pulse Ox 97.6 F 74 15 126/63 H 97 06/12/18 10:27 06/12/18 10:27 06/12/18 10:27 06/12/18 10:27 06/12/18 10:27 Intake & Output 06/11/18 06/12/18 06/13/18 06:59 06:59 06:59 Intake Total 1400 Output Total 150 Balance 1250 Weight 73.7 kg General appearance: PRESENT: no acute distress, cooperative Respiratory exam: PRESENT: clear to auscultation chava, symmetrical, unlabored. ABSENT: accessory muscle use, crackles, prolonged expiratory phas, rhonchi, tachypnea, wheezes Cardiovascular exam: PRESENT: RRR, +S1, +S2 Pulses: PRESENT: normal carotid pulses Vascular exam: PRESENT: normal capillary refill GI/Abdominal exam: PRESENT: normal bowel sounds, soft. ABSENT: distended, guarding, rebound, tenderness Extremities exam: ABSENT: clubbing, pedal edema Musculoskeletal exam: PRESENT: normal inspection. ABSENT: deformity Neurological exam: PRESENT: alert, awake, oriented to person, oriented to place, oriented to time, oriented to situation Psychiatric exam: PRESENT: appropriate affect, normal mood Skin exam: PRESENT: dry, warm Results Laboratory Results: 06/12/18 05:34 06/11/18 18:46 06/11/18 06/11/18 06/11/18 18:46 18:46 19:26 WBC 10.1 RBC 5.16 Hgb 15.0 Hct 44.3 MCV 86 MCH 29.2 MCHC 34.0 RDW 13.6 Plt Count 360 Seg Neutrophils % 65.5 Lymphocytes % 26.6 Monocytes % 5.4 Eosinophils % 1.6 Basophils % 0.9 Absolute Neutrophils 6.6 Absolute Lymphocytes 2.7 Absolute Monocytes 0.5 Absolute Eosinophils 0.2 Absolute Basophils 0.1 Sodium 141.9 Potassium 4.1 Chloride 102 Carbon Dioxide 29 Anion Gap 11 BUN 7 Creatinine 0.84 Est GFR ( Amer) > 60 Est GFR (Non-Af Amer) > 60 Glucose 87 Calcium 10.6 H Total Bilirubin 0.4 AST 19 ALT 14 Alkaline Phosphatase 139 H Total Protein 8.3 H Albumin 5.1 H Lipase 50.7 Stool Occult Blood POSITIVE 06/12/18 06/12/18 00:17 05:34 WBC 9.2 6.9 RBC 4.52 4.56 Hgb 13.3 13.4 Hct 38.7 38.9 MCV 86 85 MCH 29.4 29.3 MCHC 34.3 34.4 RDW 13.1 13.3 Plt Count 282 279 Seg Neutrophils % 63.0 62.6 Lymphocytes % 29.8 27.8 Monocytes % 5.3 6.4 Eosinophils % 1.6 2.7 Basophils % 0.3 0.5 Absolute Neutrophils 5.8 4.3 Absolute Lymphocytes 2.7 1.9 Absolute Monocytes 0.5 0.4 Absolute Eosinophils 0.1 0.2 Absolute Basophils 0.0 0.0 Sodium Potassium Chloride Carbon Dioxide Anion Gap BUN Creatinine Est GFR ( Amer) Est GFR (Non-Af Amer) Glucose Calcium Total Bilirubin AST ALT Alkaline Phosphatase Total Protein Albumin Lipase Stool Occult Blood Impressions: Abdomen/Pelvis CT 06/11/18 18:14 IMPRESSION: Inflammatory changes involving the colon, differential possibilities include inflammatory and infectious etiologies. No defined fluid collections. No pneumatosis. Qualifiers - * PATIENT BEING DISCHARGED WITH ANY OF THE FOLLOWING DIAGNOSIS: No
== END 2018-06-12 10:58 | disposition home or self-care (01) | DRG 392 ==
LOC: ER 17:37 → EH 21:24 → 3N 23:36
PROVIDERS: ADMIT Internal Medicine; ATTEND Internal Medicine
DX: K52.9 Noninfective gastroenteritis and colitis, unspecified (principal); K92.2 Gastrointestinal hemorrhage, unspecified; J44.9 Chronic obstructive pulmonary disease, unspecified; I10 Essential (primary) hypertension; E11.8 Type 2 diabetes mellitus with unspecified complications; E78.00 Pure hypercholesterolemia, unspecified; G40.909 Epilepsy, unspecified, not intractable, without status epilepticus; F41.8 Other specified anxiety disorders; F17.210 Nicotine dependence, cigarettes, uncomplicated
CPT/HCPCS: 36415; 74177; 80053; 80307; 82272; 83690; 85025; 85610; 85730; 87040; 96361; 96374; 99285; J0744; J7030; S0164

== ENCOUNTER 2018-07-04 21:26 | Emergency (ER) | payer MEDICAID, MEDICARE ==
--- NOTE | 2018-07-04 22:41 | RADIOLOGY REPORT (SQ) ---
EXAM DESCRIPTION: [facility]: XR CHEST 1 VIEW CLINICAL HISTORY: 48 years Female, SHORTNESS OF BREATH COMPARISON: 10/18/2013 FINDINGS: Lungs are clear, with no focal infiltrate, pneumothorax, or pleural effusion. Mediastinum is within normal limits for this positioning. Bony structures are unremarkable. IMPRESSION: No acute pulmonary findings.
[2018-07-04 23:02] LABS: ABSOLUTE BASOPHILS # (AUTO) 0.1 10^3/uL (0.0-0.2); ABSOLUTE EOSINOPHILS # (AUTO) 0.3 10^3/uL (0.0-0.6); ABSOLUTE LYMPHOCYTES (AUTO) 3.5 10^3/uL (0.5-4.7); ABSOLUTE MONOCYTES (AUTO) 0.6 10^3/uL (0.1-1.4); ABSOLUTE NEUT (AUTO) 5.9 10^3/uL (1.7-8.2); BASOPHILS % (AUTO) 0.8 % (0-2); EOSINOPHILS % (AUTO) 2.7 % (0-6); HEMATOCRIT 41.9 % (36.0-47.0); HEMOGLOBIN 14.4 g/dL (12.0-15.5); LYMPHOCYTES % (AUTO) 33.4 % (13-45); MEAN CORPUSCULAR HEMOGLOBIN 29.3 pg (27.0-33.4); MEAN CORPUSCULAR HGB CONC 34.4 g/dL (32.0-36.0); MEAN CORPUSCULAR VOLUME 85 fl (80-97); MONOCYTES % (AUTO) 6.1 % (3-13); PLATELET COUNT 387 10^3/uL (150-450); RED BLOOD COUNT 4.92 10^6/uL (3.72-5.28); RED CELL DISTRIBUTION WIDTH 14.4 % (11.5-14.0); TOTAL CELLS COUNTED % (AUTO) 100 %; WHITE BLOOD COUNT 10.4 10^3/uL (4.0-10.5)
--- NOTE | 2018-07-04 23:18 | ER Document Report ---
ED Respiratory Problem - General Chief Complaint: Shortness Of Breath Stated Complaint: SHORTNESS OF BREAH,WHEEZING,DECREASED ENERGY Time Seen by Provider: 07/04/18 22:54 Primary Care Provider: CESAR SMITH MD [Primary Care Provider] - Follow up as needed Information source: Patient TRAVEL OUTSIDE OF THE [place] IN LAST 30 DAYS: No - HPI Notes: Patient presents to the emergency department with chief complaint of productive cough, chest pain and fatigue. Patient reports that the symptoms have been intermittent over the past month and have worsened over the 2 weeks. Patient reports that the chest pain developed after the continuous coughing and de scribes the chest pain as sharp. Patient reports chills but denies taking her temperature at home. Patient does have a history of COPD and reports using her rescue inhaler more frequently. Patient also complaint of sinus pressure and a pounding headache. Has been taking [id number] Natalia that does help with her cough. Does complain of nausea but reports that her appetite is normal. - Related Data Allergies/Adverse Reactions: codeine [Codeine] Adverse Reaction (Verified 06/11/18 17:39) Past Medical History - Social History Smoking Status: Current Every Day Smoker Smoking Education Provided: Yes - Less than 3 minutes Family History: COPD - Past Medical History Cardiac Medical History: Reports: Hx Hypercholesterolemia, Hx Hypertension Denies: Hx Coronary Artery Disease, Hx Heart Attack Pulmonary Medical History: Reports: Hx Bronchitis, Hx COPD, Hx Pneumonia Denies: Hx Asthma, Hx Tuberculosis Neurological Medical History: Reports: Hx Seizures - 2009, 2010. Denies: Hx Cerebrovascular Accident Endocrine Medical History: Reports: Hx Diabetes Mellitus Type 2 Renal/ Medical History: Denies: Hx Peritoneal Dialysis Musculoskeletal Medical History: Reports Hx Arthritis Psychiatric Medical History: Reports: Hx Bipolar Disorder, Hx Depression Past Surgical History: Reports: Hx Hysterectomy, Hx Orthopedic Surgery - Cervical fusion. Denies: Hx Pacemaker - Immunizations Hx Diphtheria, Pertussis, Tetanus Vaccination: No Review of Systems - Review of Systems Constitutional: Chills EENT: Sinus pressure Cardiovascular: Chest pain Respiratory: Cough, Hurts to breathe, Short of breath, Other Gastrointestinal: Nausea Skin: No symptoms reported Hematologic/Lymphatic: No symptoms reported Neurological/Psychological: No symptoms reported Physical Exam - Vital signs Vitals: Temp Pulse Resp BP Pulse Ox 98.2 F 86 16 136/82 H 96 07/04/18 21:49 07/04/18 21:49 07/04/18 21:49 07/04/18 21:49 07/04/18 21:49 - General General appearance: Appears well, Alert In distress: None - Respiratory Respiratory status: No respiratory distress Chest status: Tender, Pain on movement, Pain with cough, Pain with deep breathing Breath sounds: Normal Chest palpation: Normal - Cardiovascular Rhythm: Regular Heart sounds: Normal auscultation, S1 appreciated, S2 appreciated Murmur: No - Abdominal Inspection: Normal Distension: No distension Bowel sounds: Normal Tenderness: Nontender Organomegaly: No organomegaly - Psychological Associated symptoms: Normal affect, Normal mood - Skin Skin Temperature: Warm Skin Moisture: Dry Skin Color: Normal Skin Turgor: Elastic Course - Re-evaluation Re-evalutation: 07/05/18 00:42 After dexamethasone IV patient denies pain and reports feeling better. Patient reports that she has multiple refills on her albuterol inhaler and that she will continue using her Natalia as she states that although it increases her cough she feels like it is helping her. Her overall physical assessment was benign, as well as her lab results and negative chest x-ray. Educated patient on the b enefits of smoking cessation. Patient to follow-up with her primary care physician. Patient educated on return symptoms. 07/05/18 03:19 - Vital Signs Vital signs: Temp Pulse Resp BP Pulse Ox 98.6 F 73 19 133/76 H 97 07/05/18 01:01 07/05/18 01:01 07/05/18 01:01 07/05/18 01:01 07/05/18 01:01 - Laboratory Result Diagrams: 07/04/18 22:54 07/04/18 22:54 Laboratory results interpreted by me: 07/04/18 07/04/18 22:54 22:54 RDW 14.4 H Potassium 3.4 L Glucose 114 H - Diagnostic Test Radiology reviewed: Image reviewed, Reports reviewed Radiology results interpreted by me: 07/05/18 00:55 Normal chest xray. - EKG Interpretation by Me Additional EKG results interpreted by me: EKG shows normal sinus rhythm at a rate of 73 QTC is normal at [address] elevation or T wave inversion. Discharge - Discharge Clinical Impression: Bronchitis, Chest wall pain, Tobacco abuse Disposition: HOME, SELF-CARE Additional Instructions: Today you had a cardiac workup with EKG and chest x-ray. All of your testing was normal. Continue to use your inhaler as prescribed. You may continue to use her Natalia. Please follow-up with your primary care physician. Return to the emergency department for worsening of condition. Bronchitis You have acute bronchitis. This disease is an infection or inflammation of the air passageways in your lungs. Symptoms usually include cough, low grade fever, shortness of breath, and wheezing. The cough usually persists for a couple of weeks. Most cases of bronchitis get better without antibiotics. We prescribe antibiotics when we believe bacteria are damaging your airways, or if there's high risk the bronchitis will worsen into pneumonia. Increase your fluid intake. A cool mist humidifier may make your lungs more comfortable. An expectorant (cough medicine that loosens phlegm) can help. If you smoke, STOP!!! Recovery from bronchitis can be somewhat slow, but you should see improvement within a day or two. Repeated episodes of bronchitis may result in lung damage -- for example, chronic bronchitis, recurrent pneumonias, or emphysema. Call the doctor if you develop increasing fever, shortness of breath, chest pain, bloody sputum, or otherwise worsen. If you have not improved at all after several days, contact the physician. Chest Wall Pain Your chest pain has been diagnosed as coming from the chest wall. This is often caused by straining the muscles or joints in the chest during physical activity, direct trauma, coughing, or vigorous vomiting. Persons with arthritis are especially prone to this type of pain, due to inflammation of the cartilage joints near the breast bone. Occasionally, no cause can be found. Rest from strenuous physical activity. This kind of chest pain is usually made worse by movement of the chest. Depending on the symptoms, we may prescribe medicine for pain, muscle relaxation, and antiinflammatory effects. If the pain is new, and seems to be due to muscle strain, cold packs can help. Otherwise, apply gentle warmth to the painful area for 15 minutes every hour or two. You should contact the doctor immediately if things change. Further evaluation is needed if you develop a fever or cough, if the nature of the pain changes, or if you become short of breath. Forms: Smoking Cessation Education Referrals: CESAR SMITH MD [Primary Care Provider] - Follow up as needed
[2018-07-04 23:27] LABS: ALANINE AMINOTRANSFERASE 14 U/L (9-52); ALBUMIN 4.5 g/dL (3.5-5.0); ALKALINE PHOSPHATASE 102 U/L (38-126); ANION GAP 12 (5-19); ASPARTATE AMINO TRANSFERASE 32 U/L (14-36); BILIRUBIN,DIRECT 0.3 mg/dL (0.0-0.4); BILIRUBIN,TOTAL 0.3 mg/dL (0.2-1.3); BLOOD UREA NITROGEN 14 mg/dL (7-20); CARBON DIOXIDE 26 mmol/L (22-30); CHLORIDE 103 mmol/L (98-107); CREATINE KINASE 49 U/L (30-135); GLUCOSE 114 mg/dL (75-110); POTASSIUM 3.4 mmol/L (3.6-5.0); SODIUM 140.6 mmol/L (137-145); TOTAL PROTEIN 8.1 g/dL (6.3-8.2)
[2018-07-04] MEDS ORDERED: DEXAMETHASONE SOD PHOS INJ 10 MG/1 ML VIAL IV ONE (23:33)
[2018-07-04 23:42] LABS: CREATINE KINASE MB < 0.22 ng/mL (<4.55); NT PRO BNP < 12 pg/mL (<125); TROPONIN I < 0.012 ng/mL
--- NOTE | 2018-07-05 | EKG REPORT ---
SEVERITY:- NORMAL ECG - SINUS RHYTHM : Confirmed by: Jamin Ratliff 04-Jul-2018 23:59:40
[2018-07-05 00:21] LABS: APPEARANCE,URINE CLEAR; BILIRUBIN,URINE NEGATIVE (NEGATIVE); COLOR,URINE STRAW; GLUCOSE, URINE NEGATIVE (NEGATIVE); KETONES,URINE NEGATIVE (NEGATIVE); LEUKOCYTE ESTERASE,URINE NEGATIVE (NEGATIVE); NITRITE,URINE NEGATIVE (NEGATIVE); PROTEIN,URINE NEGATIVE (NEGATIVE); URINE SPECIFIC GRAVITY 1.009; UROBILINOGEN,URINE NEGATIVE mg/dL (<2.0)
[2018-07-05 01:02] VITALS: BP 133/76
== END 2018-07-05 01:02 | disposition home or self-care (01) ==
LOC: ER 21:26
DX: J44.9 Chronic obstructive pulmonary disease, unspecified (principal); R05 Cough; R07.89 Other chest pain; R07.1 Chest pain on breathing; R53.83 Other fatigue; R68.83 Chills (without fever); J34.89 Other specified disorders of nose and nasal sinuses; R51 Headache; R11.0 Nausea; R06.02 Shortness of breath; F17.200 Nicotine dependence, unspecified, uncomplicated; I10 Essential (primary) hypertension; E11.9 Type 2 diabetes mellitus without complications; Z87.01 Personal history of pneumonia (recurrent)
CPT/HCPCS: 93005; 99285; 96374; 36415; 82553; 82550; 85025; 80053; 81001; 84484; 83880; 71045; 93010; J1100

== ENCOUNTER → 2018-08-04 | Outpatient (CLI) | payer MEDICARE ==
[2018-08-06 11:37] LABS: ANTICHROMATIN AB <0.2 AI (0.0-0.9); CENTROMERE B AB <0.2 AI (0.0-0.9); JO-1 ANTIBODY (ANACOMP) <0.2 AI (0.0-0.9); SJOGREN'S ANTI-SS-B AB <0.2 AI (0.0-0.9); SJOGREN'S SS-A ANTIBODY <0.2 AI (0.0-0.9)
[2018-08-07 12:25] LABS: DNA DOUBLE STRAND ANTIBODY ANA 3 IU/mL (0-9)
[2018-08-10 12:38] LABS: CYTOPLASMIC (C-ANCA) <1:20 titer (Neg:<1:20)
[2018-08-10 13:18] LABS: ATYPICAL PANCA <1:20 titer (Neg:<1:20); PERINUCLEAR (P-ANCA) <1:20 titer (Neg:<1:20)
== END ==
LOC: OD 15:03
PROVIDERS: ATTEND Internal Medicine Pulmonary Disease
DX: R94.2 Abnormal results of pulmonary function studies (principal)
CPT/HCPCS: 36415; 86021; 86225; 86235; 86430

== ENCOUNTER → 2018-08-11 | Outpatient (CLI) | payer MEDICAID, MEDICARE ==
--- NOTE | 2018-08-11 10:45 | RADIOLOGY REPORT (SQ) ---
EXAM DESCRIPTION: CT CHEST WITHOUT COMPLETED DATE/TIME: 08/11/2018 10:14 am REASON FOR STUDY: DYSPNEA (R06.00) R06.00 DYSPNEA, UNSPECIFIED COMPARISON: 2012 TECHNIQUE: CT scan performed of the chest without intravenous contrast. Images reviewed with lung, soft tissue and bone windows. Reconstructed coronal and sagittal MPR images reviewed. All images st ored on PACS. All CT scanners at this facility use dose modulation, iterative reconstruction, and/or weight based d osing when appropriate to reduce radiation dose to as low as reasonably achievable (ALARA). [facility]: Dose Right [facility]: CareDose [facility]: Dose Right [facility]: Teradose 4D [facility]: eNovance RADIATION DOSE: CT Rad equipment meets quality standard of care and radiation dose reduction techniq ues were employed. CTDIvol: 7.9 mGy. DLP: 290 mGy-cm. mGy. LIMITATIONS: No technical limitations. FINDINGS: LUNGS AND PLEURA: Subcentimeter bulla right upper lobe. Bandlike scarring in the lingula. No evidence of consolidation. No suspicious nodules. No effusions. HILAR AND MEDIASTINAL STRUCTURES: No identified masses or abnormal nodes. No obvious aneurysm. HEART AND VASCULAR STRUCTURES: No aneurysm. No pericardial effusion. UPPER ABDOMEN: No significant findings. Limited exam. THYROID AND OTHER SOFT TISSUES: No masses. No adenopathy. BONES: No significant finding. HARDWARE: None in the chest. OTHER: No other significant findings. IMPRESSION: No acute findings in the chest. TECHNICAL DOCUMENTATION: JOB ID: [id number] Quality ID # [id number]: Final reports with documentation of one or more dose reduction techniques (e.g., Au tomated exposure control, adjustment of the mA and/or kV according to patient size, use of iterative reconstruction technique) 2010 [employer]- All Rights Reserved Reading location - IP/workstation name: [email or web address]
== END ==
LOC: RAD 09:57
PROVIDERS: ATTEND Internal Medicine Pulmonary Disease
DX: R06.00 Dyspnea, unspecified (principal)
CPT/HCPCS: 71250

== ENCOUNTER 2018-11-25 14:57 | Emergency (ER) | payer MEDICARE ==
--- NOTE | 2018-11-25 16:05 | ER Document Report ---
ED Medical Screen (RME) - General Chief Complaint: Painful Cough Stated Complaint: RIB PAIN Time Seen by Provider: 11/25/18 15:50 Primary Care Provider: JORGE LANCASTER MD [Primary Care Provider] - Follow up as needed Mode of Arrival: Ambulatory Information source: Patient Notes: Patient is a 40-year-old female presents the emergency department with complaints of left lateral rib pain. Patient reports pain is been ongoing for approximately 1 week. She states last time she felt like this she had a pneumonia. Patient reports dry cough with chills. Exam: Lung sounds clear and equal bilaterally. I have greeted and performed a rapid initial assessment of this patient. A comprehensive ED assessment and evaluation of the patient, analysis of test results and completion of the medical decision making process will be conducted by additional ED providers. I have specifically instructed the patient or family members with the patient to immediately return to any nursing staff should anything change in the patient's condition or with their chief complaint. This medical record was dictated with voice recognizing software. There may be grammatical, syntax errors that are unintended. TRAVEL OUTSIDE OF THE [place] IN LAST 30 DAYS: No - Related Data Allergies/Adverse Reactions: codeine [Codeine] Adverse Reaction (Verified 11/25/18 15:11) Past Medical History - Past Medical History Cardiac Medical History: Reports: Hx Hypercholesterolemia, Hx Hypertension Denies: Hx Coronary Artery Disease, Hx Heart Attack Pulmonary Medical History: Reports: Hx Bronchitis, Hx COPD, Hx Pneumonia Denies: Hx Asthma, Hx Tuberculosis Neurological Medical History: Reports: Hx Seizures - 2009, 2010. Denies: Hx Cerebrovascular Accident Endocrine Medical History: Reports: Hx Diabetes Mellitus Type 2 Renal/ Medical History: Denies: Hx Peritoneal Dialysis Musculoskeltal Medical History: Reports Hx Arthritis Psychiatric Medical History: Reports: Hx Bipolar Disorder, Hx Depression Past Surgical History: Reports: Hx Hysterectomy, Hx Orthopedic Surgery - Cerv ical fusion. Denies: Hx Pacemaker - Immunizations Hx Diphtheria, Pertussis, Tetanus Vaccination: No Physical Exam - Vital signs Vitals: Temp Pulse Resp BP Pulse Ox 98.5 F 103 H 18 134/78 H 97 11/25/18 15:06 11/25/18 15:06 11/25/18 15:06 11/25/18 15:06 11/25/18 15:06 Course - Vital Signs Vital signs: Temp Pulse Resp BP Pulse Ox 98.5 F 103 H 18 134/78 H 97 11/25/18 15:06 11/25/18 15:06 11/25/18 15:06 11/25/18 15:06 11/25/18 15:06 Doctor's Discharge - Discharge Referrals: JORGE LANCASTER MD [Primary Care Provider] - Follow up as needed
--- NOTE | 2018-11-25 16:49 | ER Document Report ---
HPI - HPI Time Seen by Provider: 11/25/18 15:50 Pain Level: 4 Notes: Patient is a 48-year-old female with history of COPD who presents complaining of left lateral rib pain that is been present for 3 weeks status post injury. Patient states that she fell backwards and landed on her back on a piece of wood causing pain to the ribs in that area. Patient states that she has had pain in that area since. Patient states that about a week and a half ago she reaggravated that area when she tried lifting a heavy object. She has not noticed any bruising. Patient states that the pain is a dull pain and does not radiate. She has noticed increased pain with deep inspiration. She has noted a dry cough, but is not uncommon from her having COPD. She does admit to smoking. Denies any prolonged immobilization, distance travel, recent surgery/trauma, personal cancer history, hormone use, or previous DVT/PE. Denies any headache, fever, URI, sore throat, chest pain, palpitations, syncope, shortness of breath, wheeze, dyspnea, abdominal pain, nausea/vomiting/diarrhea, urinary retention, dysuria, hematuria, loss of control of bowel or bladder, numbness/tingling, saddle anesthesia, muscle paralysis/weakness, or rash. - ROS Systems Reviewed and Negative: Yes All other systems reviewed and negative - REPRODUCTIVE Reproductive: DENIES: : - DERM Skin Color: Normal Past Medical History - General Information source: Patient - Social History Smoking Status: Current Every Day Smoker Family History: COPD Patient has suicidal ideation: No Patient has homicidal ideation: No - Past Medical History Cardiac Medical History: Reports: Hx Hypercholesterolemia, Hx Hypertension Denies: Hx Coronary Artery Disease, Hx Heart Attack Pulmonary Medical History: Reports: Hx Bronchitis, Hx COPD, Hx Pneumonia Denies: Hx Asthma, Hx Tuberculosis Neurological Medical History: Reports: Hx Seizures - 2009, 2010. Denies: Hx Cerebrovascular Accident Endocrine Medical History: Reports: Hx Diabetes Mellitus Type 2 Renal/ Medical History: Denies: Hx Peritoneal Dialysis Musculoskeletal Medical History: Reports Hx Arthritis Psychiatric Medical History: Reports: Hx Bipolar Disorder, Hx Depression Past Surgical History: Reports: Hx Hysterectomy, Hx Orthopedic Surgery - Cervical fusion. Denies: Hx Pacemaker - Immunizations Hx Diphtheria, Pertussis, Tetanus Vaccination: No Vertical Provider Document - CONSTITUTIONAL Agree With Documented VS: No - HR 88 during exam apical. Notes: PHYSICAL EXAMINATION: GENERAL: Well-appearing, well-nourished and in no acute distress. HEAD: Atraumatic, normocephalic. EYES: Pupils equal round and reactive to light, extraocular movements intact, sclera anicteric, conjunctiva are normal. ENT: Nares patent and without discharge. oropharynx clear without exudates. No tonsilar hypertrophy or erythema. Moist mucous membranes. NECK: Normal range of motion, supple without lymphadenopathy Chest: + reproducible tenderness to palpation of the left lateral mid rib area and reproducible with arm extension/abduction. LUNGS: Breath sounds clear to auscultation bilaterally and equal. No wheezes rales or rhonchi. HEART: Regular rate and rhythm without murmurs, rubs, gallops. ABDOMEN: Soft, nontender, nondistended abdomen. No guarding, no rebound. No masses appreciated. Normal bowel sounds present. No CVA tenderness bilaterally. Musculoskeletal: FROM to passive/active. Strength 5+/5. Mauro neg. No asymmetry to LE's. Extremities: No cyanosis, clubbing, or edema b/l. Peripheral pulses 2+. Capillary refill less than 3 seconds. NEUROLOGICAL: Normal speech, normal gait. PSYCH: Normal mood, normal affect. SKIN: Warm, Dry, normal turgor, no rashes or lesions noted. - INFECTION CONTROL TRAVEL OUTSIDE OF THE [place] IN LAST 30 DAYS: No Course - Re-evaluation Re-evalutation: 11/25/18 17:28 Patient is an afebrile, well-hydrated 48yo female who presents to the ED with left lateral rib pain, suspect contusion. Vitals are acceptable without any significant tachycardia, tachypnea, or hypoxia. PE is otherwise unremarkable aside from the reproducible lateral chest wall tenderness. Patient is nontoxic- appearing and is tolerating p.o. without any difficulties. EKG(HR88) and rib/chest x-ray are unremarkable for any acute pathology. Patient has a Wells score of 0 and is PERC negative. Patient does not have any chest pain, dyspnea, or shortness of breath. Patient's presentation and symptomatology creates low suspicion for ACS, PE, pneumothorax, pericarditis, dissection, respiratory compromise, severe dehydration, sepsis, meningitis, or other systemic emergent condition at this time. Patient is aware that this condition can change from initial presentation and she needs to monitor symptoms closely and seek medical attention for any acute changes. Recommend conservative measures for symptoms. Recheck with your PCM in 2-3 days. Return to the ED with any worsening/concerning symptoms otherwise as reviewed in discharge. Patient is in agreement. - Vital Signs Vital signs: Temp Pulse Resp BP Pulse Ox 98.5 F 103 H 18 134/78 H 97 11/25/18 15:06 11/25/18 15:06 11/25/18 15:06 11/25/18 15:06 11/25/18 15:06 Discharge - Discharge Clinical Impression: Rib pain on left side Condition: Stable Disposition: HOME, SELF-CARE Instructions: Rib Contusion ([facility]) Additional Instructions: Rest, Ice, Compression, Elevation Tylenol/ibuprofen as needed Light stretches daily Strength exercises as able Moist heat and massage may help F/u with your PCP in 2-3 days for a recheck Consider consult(s) with Orthopedics/physical therapy for ongoing/worsening symptoms Return to the ED with any worsening symptoms and/or development of fever, headache, chest pain, palpitations, syncope, shortness of breath, trouble breathing, abdominal pain, n/v/d, muscle weakness/paralysis, numbness/tingling, swelling, redness, or other worsening symptoms that are concerning to you. Prescriptions: Naproxen 500 mg PO BID #10 tablet Forms: Elevated Blood Pressure, Smoking Cessation Education Referrals: [facility] [Provider Group] - Follow up as needed
--- NOTE | 2018-11-25 17:13 | RADIOLOGY REPORT (SQ) ---
EXAM DESCRIPTION: RIBS LEFT W/PA CHEST COMPLETED DATE/TIME: 11/25/2018 4:58 pm REASON FOR STUDY: cough/chills/rib pain COMPARISON: 07/04/2018 TECHNIQUE: Frontal view of the chest and additional views of the left ribs acquired. NUMBER OF VIEWS: Three view. LIMITATIONS: None. FINDINGS: FRONTAL CXR: No pneumothorax. No pleural effusion. No consolidation. RIBS: No displaced rib fractures. No lytic or blastic bony lesions. OTHER: No other significant finding. IMPRESSION: No pneumothorax. No pleural effusion. No consolidation. No fracture. COMMENT: SITE OF TRAUMA/COMPLAINT MARKED/STAMP COMPLETED: NOT APPLICABLE. TECHNICAL DOCUMENTATION: JOB ID: [id number] [place]-72 2010 [employer]- All Rights Reserved Reading location - IP/workstation name: [employer]
[2018-11-25 17:45] VITALS: BP 105/86
--- NOTE | 2018-11-26 10:00 | EKG REPORT ---
SEVERITY:- NORMAL ECG - SINUS RHYTHM : Confirmed by: Bob Jarvis MD 26-Nov-2018 09:59:40
== END 2018-11-25 17:42 | disposition home or self-care (01) ==
LOC: ER 14:57
DX: R07.81 Pleurodynia (principal); F17.200 Nicotine dependence, unspecified, uncomplicated
CPT/HCPCS: 93005; 93010; 99283

== ENCOUNTER 2019-02-22 18:45 | Emergency (ER) | payer MEDICAID, MEDICARE ==
[2019-02-22] MEDS ORDERED: NORMAL SALINE 1000 ML 1,000 ML IV ONE ×2 (19:21→20:38)
[2019-02-22] MEDS ORDERED: ASPIRIN 81 MG TABLET, CHEWABLE PO ONE (19:21)
--- NOTE | 2019-02-22 19:23 | ER Document Report ---
ED Medical Screen (RME) - General Chief Complaint: Epigastric Pain Stated Complaint: EPIGASTRIC PAIN Time Seen by Provider: 02/22/19 19:15 Primary Care Provider: CESAR SMITH MD [Primary Care Provider] - Follow up as needed Information source: Patient Notes: Patient presents complaining of chest pain that started this morning. Patient also reports nausea vomiting diarrhea and upper abdominal tenderness. Patient reports chills and body aches. Patient states she has had a cough and shortness of breath. Patient does have a history of gallstones and gastric ulcer. Patient was given Zofran per EMS. I have greeted and performed a rapid initial assessment of this patient. A comprehensive ED assessment and evaluation of the patient, analysis of test results and completion of the medical decision making process will be conducted by additional ED providers. TRAVEL OUTSIDE OF THE [place] IN LAST 30 DAYS: No - Related Data Allergies/Adverse Reactions: codeine [Codeine] Adverse Reaction (Verified 02/22/19 19:11) Past Medical History - Social History Chew tobacco use (# tins/day): No Frequency of alcohol use: None Drug Abuse: None - Past Medical History Cardiac Medical History: Reports: Hx Hypercholesterolemia, Hx Hypertension Denies: Hx Coronary Artery Disease, Hx Heart Attack Pulmonary Medical History: Reports: Hx Bronchitis, Hx COPD, Hx Pneumonia Denies: Hx Asthma, Hx Tuberculosis Neurological Medical History: Reports: Hx Seizures - 2009, 2010. Denies: Hx Cerebrovascular Accident Endocrine Medical History: Reports: Hx Diabetes Mellitus Type 2 Renal/ Medical History: Denies: Hx Peritoneal Dialysis Musculoskeltal Medical History: Reports Hx Arthritis Psychiatric Medical History: Reports: Hx Bipolar Disorder, Hx Depression Past Surgical History: Reports: Hx Hysterectomy, Hx Orthopedic Surgery - Cervical fusion. Denies: Hx Pacemaker - Immunizations Hx Diphtheria, Pertussis, Tetanus Vaccination: No Physical Exam - Vital signs Vitals: Temp Pulse Resp BP Pulse Ox 98.4 F 106 H 20 133/96 H 98 02/22/19 18:54 02/22/19 18:54 02/22/19 18:54 02/22/19 18:54 02/22/19 18:54 - General General appearance: Alert, Anxious Notes: Epigastric tenderness Course - Vital Signs Vital signs: Temp Pulse Resp BP Pulse Ox 98.4 F 106 H 20 133/96 H 98 02/22/19 18:54 02/22/19 18:54 02/22/19 18:54 02/22/19 18:54 02/22/19 18:54 Doctor's Discharge - Discharge Referrals: CESAR SMITH MD [Primary Care Provider] - Follow up as needed
[2019-02-22] MEDS ORDERED: METOCLOPRAMIDE HCL ORAL SOLN 10 MG/10 ML UDCUP PO ONE (19:37)
[2019-02-22] MEDS ORDERED: LIDOCAINE 2% VISCOUS SOLN 20 ML UDCUP PO ONE (19:37)
[2019-02-22] MEDS ORDERED: MAG HYDROX/AL HYDROX/SIMETH SUSP 30 ML UDCUP PO ONE (19:37)
--- NOTE | 2019-02-22 19:38 | ER Document Report ---
ED GI/ - General Chief Complaint: Epigastric Pain Stated Complaint: EPIGASTRIC PAIN Time Seen by Provider: 02/22/19 19:15 Primary Care Provider: CESAR SMITH MD [Primary Care Provider] - Follow up as needed Notes: Patient is a 48-year-old female with a history of COPD who presents emergency department with a chief complaint of epigastric pain. Patient reports she ate a piece of pizza yesterday which seemed to exacerbate her symptoms. Patient reports she has had 20 episodes of vomiting today and 10-20 episodes of diarrhea. Patient denies blood in the vomitus or stool. Patient reports she last saw Dr. Hudson within the past month and had an upper and lower endoscopy. Patient reports she was placed on medication that she cannot recall the name of for a gastric ulcer. Patient states that she was doing okay with her pain until she had a piece of pizza last night. Patient reports she is also having chest pain but is not sure if this is related to the acid reflux. Patient reports that Dr. Hudson also performed a ultrasound of the gallbladder was told she had stones. Patient reports she has not followed up with him. TRAVEL OUTSIDE OF THE [place] IN LAST 30 DAYS: No - Related Data Allergies/Adverse Reactions: codeine [Codeine] Adverse Reaction (Verified 02/22/19 19:11) Past Medical History - General Information source: Patient - Social History Smoking Status: Current Every Day Smoker Chew tobacco use (# tins/day): No Frequency of alcohol use: None Drug Abuse: None Lives with: Family Family History: COPD Patient has suicidal ideation: No Patient has homicidal ideation: No - Past Medical History Cardiac Medical History: Reports: Hx Hypercholesterolemia, Hx Hypertension Denies: Hx Coronary Artery Disease, Hx Heart Attack Pulmonary Medical History: Reports: Hx Bronchitis, Hx COPD, Hx Pneumonia Denies: Hx Asthma, Hx Tuberculosis EENT Medical History: Reports: None Neurological Medical History: Reports: Hx Seizures - 2010. Denies: Hx Cerebrovascular Accident Endocrine Medical History: Reports: Hx Diabetes Mellitus Type 2 Renal/ Medical History: Reports: None. Denies: Hx Peritoneal Dialysis Malignancy Medical History: Reports: None GI Medical History: Reports: None Musculoskeletal Medical History: Reports Hx Arthritis Skin Medical History: Reports None Psychiatric Medical History: Reports: Hx Bipolar Disorder, Hx Depression Traumatic Medical History: Reports: None Infectious Medical History: Reports: None Past Surgical History: Reports: Hx Hysterectomy, Hx Orthopedic Surgery - Cervical fusion. Denies: Hx Pacemaker - Immunizations Hx Diphtheria, Pertussis, Tetanus Vaccination: No Review of Systems - Review of Systems Constitutional: No symptoms reported EENT: No symptoms reported Cardiovascular: See HPI Respiratory: No symptoms reported Gastrointestinal: See HPI Genitourinary: No symptoms reported Female Genitourinary: No symptoms reported Musculoskeletal: No symptoms reported Skin: No symptoms reported Hematologic/Lymphatic: No symptoms reported Neurological/Psychological: No symptoms reported Physical Exam - Vital signs Vitals: Temp Pulse Resp BP Pulse Ox 98.4 F 106 H 20 133/96 H 98 02/22/19 18:54 02/22/19 18:54 02/22/19 18:54 02/22/19 18:54 02/22/19 18:54 - Notes Notes: GENERAL: Well-appearing, well-nourished and in no acute distress. HEAD: Atraumatic, normocephalic. EYES: Pupils equal round and reactive to light, extraocular movements intact, sclera anicteric, conjunctiva are normal. ENT: Nares patent, oropharynx clear without exudates. Moist mucous membranes. NECK: Normal range of motion, supple without lymphadenopathy or JVD. LUNGS: Breath sounds clear to auscultation bilaterally and equal. No wheezes rales or rhonchi. HEART: Regular rate and rhythm without murmurs, rubs or gallops. ABDOMEN: Soft, epigastric tenderness with palpation, negative murphys sign, normoactive bowel sounds. No guarding, no rebound. No masses appreciated. BACK: No cervical, thoracic, lumbar midline tenderness. No saddle anesthesia, normal distal neurovascular exam. GENITOURINARY: Deferred. EXTREMITIES: Normal range of motion, no pitting or edema. No clubbing or cyanosis. NEUROLOGICAL: Cranial nerves II through XII grossly intact. Normal speech, normal gait. PSYCH: Normal mood, normal affect. SKIN: Warm, Dry, normal turgor, no rashes or lesions noted. Course - Re-evaluation Re-evalutation: 02/22/19 19:43 I did cancel the aspirin as the patient was recently diagnosed with a gastric ulcer and is having vomiting. I do believe the patient's chest pain is associated with her ulcer she reports eating pizza which exacerbated her discomfort. I will give her a dose of IM Phenergan for her nausea and vomiting. Patient is receiving IV fluids. 02/22/19 20:59 Patient reports feeling much better after receiving the IV fluids. I did order a second liter of fluid. Patient has had no vomiting. Patient reports her abdominal pain has subsided. We will give the rest of the IV fluids, give a p.o. challenge. Patient given a dose of Pepcid. I did inform the patient to avoid spicy or acidic foods as this did seem to upset her stomach. 02/22/19 22:03 Patient tolerating liquids without vomiting. Patient did not tolerate the p.o. potassium. We will give patient a Zofran to go pack. Patient reports feeling much better and will follow up with her intelligence research specialist as previously scheduled on March 02. Patient given strict return precautions. Patient nontoxic-appearing. - Vital Signs Vital signs: Temp Pulse Resp BP Pulse Ox 98.4 F 106 H 20 133/96 H 98 02/22/19 18:54 02/22/19 18:54 02/22/19 18:54 02/22/19 18:54 02/22/19 18:54 - Laboratory Result Diagrams: 02/22/19 19:50 02/22/19 19:50 Laboratory results interpreted by me: 02/22/19 02/22/19 02/22/19 19:29 19:50 19:50 WBC 13.3 H RDW 14.8 H Seg Neuts % (Manual) 91 H Lymphocytes % (Manual) 3 L Monocytes % (Manual) 1 L Abs Neuts (Manual) 12.8 H Abs Lymphs (Manual) 0.4 L Potassium 3.2 L Alkaline Phosphatase 131 H Urine Protein 30 H Urine Ketones TRACE H Urine Bilirubin SMALL H Urine Urobilinogen 2.0 H Ur Leukocyte Esterase MODERATE H Patient does have a slight leukocytosis of 13.3. Patient does have a low potassium of 3.2. Patient has moderate loose cytosis. Laboratory 02/22/19 02/22/19 02/22/19 19:29 19:50 19:50 WBC 13.3 H RBC 5.11 Hgb 14.1 Hct 41.8 MCV 82 MCH 27.5 MCHC 33.6 RDW 14.8 H Plt Count 283 Lymph % (Auto) Not Reportable Callahan % (Auto) Not Reportable Eos % (Auto) Not Reportable Baso % (Auto) Not Reportable Absolute Neuts (auto) Not Reportable Absolute Lymphs (auto) Not Reportable Absolute Monos (auto) Not Reportable Absolute Eos (auto) Not Reportable Absolute Basos (auto) Not Reportable Total Counted 100 Seg Neutrophils % Not Reportable Seg Neuts % (Manual) 91 H Band Neutrophils % 5 Lymphocytes % (Manual) 3 L Monocytes % (Manual) 1 L Eosinophils % (Manual) 0 Basophils % (Manual) 0 Abs Neuts (Manual) 12.8 H Abs Lymphs (Manual) 0.4 L Abs Monocytes (Manual) 0.1 Absolute Eos (Manual) 0.0 Abs Basophils (Manual) 0.0 Platelet Comment ADEQUATE Anisocytosis SLIGHT Sodium 141.0 Potassium 3.2 L Chloride 104 Carbon Dioxide 26 Anion Gap 11 BUN 9 Creatinine 0.78 Est GFR ( Amer) > 60 Est GFR (MDRD) Non-Af > 60 Glucose 94 Calcium 9.9 Total Bilirubin 0.6 Direct Bilirubin 0.1 Neonat Total Bilirubin Not Reportable Neonat Direct Bilirubin Not Reportable Neonat Indirect Bili Not Reportable AST 19 ALT 11 Alkaline Phosphatase 131 H Troponin I Total Protein 7.3 Albumin 4.2 Lipase 48.7 Urine Color YELLOW Urine Appearance SLIGHTLY-CLOUDY Urine pH 5.0 Ur Specific [place] 1.025 Urine Protein 30 H Urine Glucose (UA) NEGATIVE Urine Ketones TRACE H Urine Blood NEGATIVE Urine Nitrite NEGATIVE Urine Bilirubin SMALL H Urine Urobilinogen 2.0 H Ur Leukocyte Esterase MODERATE H Urine WBC (Auto) 19 Urine RBC (Auto) 5 U Hyaline Cast (Auto) 12 Urine Bacteria (Auto) TRACE Squamous Epi Cells Auto 3 Calcium Oxalate Cr Auto TOO NUMEROUS TO CNT Urine Mucus (Auto) MANY Urine Ascorbic Acid NEGATIVE 02/22/19 19:50 WBC RBC Hgb Hct MCV MCH MCHC RDW Plt Count Lymph % (Auto) Callahan % (Auto) Eos % (Auto) Baso % (Auto) Absolute Neuts (auto) Absolute Lymphs (auto) Absolute Monos (auto) Absolute Eos (auto) Absolute Basos (auto) Total Counted Seg Neutrophils % Seg Neuts % (Manual) Band Neutrophils % Lymphocytes % (Manual) Monocytes % (Manual) Eosinophils % (Manual) Basophils % (Manual) Abs Neuts (Manual) Abs Lymphs (Manual) Abs Monocytes (Manual) Absolute Eos (Manual) Abs Basophils (Manual) Platelet Comment Anisocytosis Sodium Potassium Chloride Carbon Dioxide Anion Gap BUN Creatinine Est GFR ( Amer) Est GFR (MDRD) Non-Af Glucose Calcium Total Bilirubin Direct Bilirubin Neonat Total Bilirubin Neonat Direct Bilirubin Neonat Indirect Bili AST ALT Alkaline Phosphatase Troponin I < 0.012 Total Protein Albumin Lipase Urine Color Urine Appearance Urine pH Ur Specific [place] Urine Protein Urine Glucose (UA) Urine Ketones Urine Blood Urine Nitrite Urine Bilirubin Urine Urobilinogen Ur Leukocyte Esterase Urine WBC (Auto) Urine RBC (Auto) U Hyaline Cast (Auto) Urine Bacteria (Auto) Squamous Epi Cells Auto Calcium Oxalate Cr Auto Urine Mucus (Auto) Urine Ascorbic Acid - Diagnostic Test Radiology reviewed: Reports reviewed Radiology results interpreted by me: 02/22/19 21:03 Abdomen Ultrasound 02/22/19 19:21 IMPRESSION: Cholelithiasis without evidence of acute cholecystitis. Chest X-Ray 02/22/19 19:21 IMPRESSION: No evidence of acute cardiopulmonary disease. - EKG Interpretation by Me Additional EKG results interpreted by me: 02/22/19 21:45 Patient's EKG shows a sinus tachycardia with a heart rate of 116, WI interval is 120, QT is 344 and QTC is 478. Patient has a normal axis deviation. Patient does not have any ST segment changes in consecutive leads. Discharge - Discharge Clinical Impression: Epigastric pain, Nausea vomiting and diarrhea, Hypokalemia Gastritis Qualifiers: Gastritis type: unspecified gastritis Chronicity: acute Gastritis bleeding: without bleeding Qualified Code(s): K29.00 - Acute gastritis without bleeding Gastric ulcer Qualifiers: Gastric ulcer chronicity: acute Gastric ulcer complication status: without hemorrhage or perforation Qualified Code(s): K25.3 - Acute gastric ulcer without hemorrhage or perforation Condition: Stable Disposition: HOME, SELF-CARE Additional Instructions: *Today was in the emergency department for abdominal pain with nausea, vomiting and diarrhea. We did obtain an ultrasound of your abdomen which did show gallstones but no acute cholecystitis or emergent issue that requires surgery. You do require follow-up with your medical doctor. Please follow-up with your intelligence research specialist as well. Please continue taking the antacid that was given to you by your GI doctor. Over the next 24 to 48 hours I would attempt a clear liquid diet and advance as tolerated. Please avoid spicy or acidic foods as this can upset your stomach. Please return emergency department if you develop any new or worsening symptoms. Hypokalemia You have an abnormally decreased level of serum potassium. Hypokalemia may cause weakness, fatigue, or heart rhythm abnormalities. Sometimes there are no symptoms at all. Usually, low serum potassium is due to taking diuretics (water pills). It can also be due to excessive vomiting or diarrhea. If no obvious cause is evident, further evaluation will be necessary. Treatment is usually oral potassium supplements. Take these exactly as prescribed. You may also want to select foods which are naturally high in potassium -- fruits (such as bananas, cantaloupe, grapes, oranges, prunes, tomatoes), fresh vegetables (potatoes, spinach, beans, peas), orange or tomato juice, tomato pasta sauce, milk, fish (halibut, tuna, salmon, bridger) A follow-up blood test is usually performed to assure that the potassium is returning to normal. Call the physician if you suffer severe weakness, muscle twitching or cramping, palpitations (pounding or irregular heartbeat), or any other new or alarming symptoms. Gastritis You have an inflammation of the stomach called gastritis. This commonly causes upper abdominal pain, nausea, and vomiting. In severe cases, bleeding of the stomach lining can occur. Gastritis can be caused by bacteria or viruses, alcohol, or stomach-irritating drugs. Begin with sips of clear liquids. Take increasing amounts of fluid over the first 24 hours. Then start small amounts of bland foods (such as dry toast, applesauce, mashed potato). Gradually resume your usual diet. You should take antacids every two hours until the pain has subsided. Acid-suppressing drugs may be prescribed as well. Avoid aspirin, caffeine, tobacco, and alcohol. If the abdominal pain worsens, or there is evidence of major bleeding in the stomach (such as black, tarry stool, bloody or black vomit, or lightheadedness), you should return immediately. Call the doctor if you aren't improved in 24 to 36 hours. Abdominal Pain There are many causes of abdominal pain. Pain can mean a serious problem requiring surgery (such as appendicitis). It can also be an innocent problem that goes away on its own (such as a viral infection). Often, time must pass to determine the cause of pain. The physician does not feel that hospitalization is necessary, at present. Things may change within the next 24 hours. Call the doctor or come back for re- examination if any problems occur, such as: (1) Pain that becomes more severe, steady, or becomes concentrated in one specific area. Also, pain that is more severe with movement or coughing. (2) Vomiting that persists or becomes more frequent. (3) Blood in the vomitus, urine, or bowel movements. Blood in the stool may have a tarry or black appearance. (4) Shaking chills or fever greater than 100 degrees F. (5) The abdomen becomes more distended or swollen. (6) Bowel movements cease. (7) Failure to improve as expected. Referrals: CESAR SMITH MD [Primary Care Provider] - Follow up as needed
[2019-02-22] MEDS ORDERED: PROMETHAZINE HCL INJ 25 MG/1 ML VIAL IM ONE (19:39)
[2019-02-22 19:58] LABS: APPEARANCE,URINE SLIGHTLY-CLOUDY; BILIRUBIN,URINE SMALL (NEGATIVE); CALCIUM OXALATE CRYSTALS,URINE TOO NUMEROUS TO CNT /HPF; GLUCOSE, URINE NEGATIVE (NEGATIVE); KETONES,URINE TRACE mg/dL (NEGATIVE); LEUKOCYTE ESTERASE,URINE MODERATE (NEGATIVE); NITRITE,URINE NEGATIVE (NEGATIVE); PROTEIN,URINE 30 mg/dL (NEGATIVE); URINE SPECIFIC GRAVITY 1.025
[2019-02-22 19:59] LABS: COLOR,URINE YELLOW
[2019-02-22 20:11] LABS: HEMATOCRIT 41.8 % (36.0-47.0); HEMOGLOBIN 14.1 g/dL (12.0-15.5); MEAN CORPUSCULAR HEMOGLOBIN 27.5 pg (27.0-33.4); MEAN CORPUSCULAR HGB CONC 33.6 g/dL (32.0-36.0); MEAN CORPUSCULAR VOLUME 82 fl (80-97); PLATELET COUNT 283 10^3/uL (150-450); RED BLOOD COUNT 5.11 10^6/uL (3.72-5.28); RED CELL DISTRIBUTION WIDTH 14.8 % (11.5-14.0); WHITE BLOOD COUNT 13.3 10^3/uL (4.0-10.5)
[2019-02-22 20:21] LABS: ALBUMIN 4.2 g/dL (3.5-5.0); ALKALINE PHOSPHATASE 131 U/L (38-126); ANION GAP 11 (5-19); ASPARTATE AMINO TRANSFERASE 19 U/L (14-36); BILIRUBIN,DIRECT 0.1 mg/dL (0.0-0.4); BILIRUBIN,TOTAL 0.6 mg/dL (0.2-1.3); BLOOD UREA NITROGEN 9 mg/dL (7-20); CALCIUM 9.9 mg/dL (8.4-10.2); CARBON DIOXIDE 26 mmol/L (22-30); CHLORIDE 104 mmol/L (98-107); GLUCOSE 94 mg/dL (75-110); POTASSIUM 3.2 mmol/L (3.6-5.0); TOTAL PROTEIN 7.3 g/dL (6.3-8.2)
[2019-02-22 20:34] LABS: ABSOLUTE LYMPHOCYTES# (MANUAL) 0.4 10^3/uL (0.5-4.7); ABSOLUTE MONOCYTES # (MANUAL) 0.1 10^3/uL (0.1-1.4); ANISOCYTOSIS SLIGHT; BAND NEUTROPHILS % (MANUAL) 5 % (3-5); BASOPHILS % (MANUAL) 0 % (0-2); EOSINOPHILS % (MANUAL) 0 % (0-6); LYMPHOCYTES % (MANUAL) 3 % (13-45); MONOCYTES % (MANUAL) 1 % (3-13); PLATELET COMMENT ADEQUATE; SEGMENTED NEUTROPHILS % (MAN) 91 % (42-78); TOTAL CELLS COUNTED 100
--- NOTE | 2019-02-22 20:48 | RADIOLOGY REPORT (SQ) ---
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 COMPARISON: 11/25/2018 FINDINGS: The cardiomediastinal silhouette is within normal limits. No pulmonary vascular congestion is seen. No focal consolidation, pleural effusion, or pneumothorax. No acute bony findings are seen. IMPRESSION: No evidence of acute cardiopulmonary disease.
[2019-02-22] MEDS ORDERED: FAMOTIDINE INJ/PF 20 MG/2 ML SDV IV ONE (20:50)
--- NOTE | 2019-02-22 20:52 | RADIOLOGY REPORT (SQ) ---
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 COMPARISON: None. TECHNIQUE: Grayscale and color Doppler imaging of the right upper quadrant was performed. FINDINGS: The liver has normal echotexture without focal lesion identified. The main portal vein has normal hepatopetal flow. There are multiple echogenic gallstones, with partial shadowing. No pericholecystic fluid or gallbladder wall thickening. The common bile duct is normal caliber. The visualized portions of the pancreas are unremarkable. No hydronephrosis or shadowing renal stones are identified. The right kidney is normal in size. The visualized portions of the IVC and aorta are patent. IMPRESSION: Cholelithiasis without evidence of acute cholecystitis.
[2019-02-22] MEDS ORDERED: ROPINIROLE HCL 2 MG TABLET PO ONE (21:13)
[2019-02-22] MEDS ORDERED: POTASSIUM CHLORIDE 10 MEQ CAPSULE.ER PO ONE (21:14)
[2019-02-22] MEDS ORDERED: ONDANSETRON ODT 4 MG TAB (6 TAB/ER DISP) PO PRN (21:45)
[2019-02-22 22:04] VITALS: BP 135/76
--- NOTE | 2019-02-22 23:38 | EKG REPORT ---
SEVERITY:- ABNORMAL ECG - SINUS TACHYCARDIA RIGHT ATRIAL ABNORMALITY : Confirmed by: Jamin Ratliff 22-Feb-2019 23:38:22
== END 2019-02-22 22:04 | disposition home or self-care (01) ==
LOC: ER 18:45
DX: K25.3 Acute gastric ulcer without hemorrhage or perforation (principal); K80.20 Calculus of gallbladder without cholecystitis without obstruction; E87.6 Hypokalemia; R10.13 Epigastric pain; R19.7 Diarrhea, unspecified; R11.2 Nausea with vomiting, unspecified; R00.0 Tachycardia, unspecified; D72.829 Elevated white blood cell count, unspecified; R07.9 Chest pain, unspecified; F17.200 Nicotine dependence, unspecified, uncomplicated; I10 Essential (primary) hypertension; J44.9 Chronic obstructive pulmonary disease, unspecified; E11.9 Type 2 diabetes mellitus without complications
CPT/HCPCS: 93005; 99285; 96361; 96374; 96375; 36415; 83690; 85025; 80053; 81001; 84484; 71046; 76705; 93010; J3490; A9270 ×4; J2550; J7030; S0028

== ENCOUNTER 2019-11-24 14:19 | Emergency (ER) | payer MEDICAID, MEDICARE ==
[2019-11-24 14:30] VITALS: BP 128/84
[2019-11-24] MEDS ORDERED: NORMAL SALINE 1000 ML 1,000 ML IV ONE (16:11)
[2019-11-24] MEDS ORDERED: ONDANSETRON HCL INJ/PF 4 MG/2 ML SDV IV ONE (16:12)
[2019-11-24] MEDS ORDERED: GLUCAGON,HUMAN RECOMB 1 MG INJ IV ONE (16:15)
--- NOTE | 2019-11-24 16:16 | ER Document Report ---
ED General - General Chief Complaint: Diarrhea Stated Complaint: DIARRHEA,CONGESTION,COUGH Primary Care Provider: CONSTANTINO QUEEN PA [Primary Care Provider] - Follow up as needed Notes: Patient is a 49-year-old white female with a history of chronic pain who presents to the emergency department the chief complaint of diarrhea that began last Wednesday, 6 days ago. She reports she was constipated preceding this. She states that she had not had a bowel movement and when she tried to intake oral foods and drinks she felt the food had no where to go and she would become nauseous and vomit the food back up. She states she schedule an appointment to see her doctor and in the interim picked up a bottle of magnesium citrate on Wednesday. She states she drank the entire bottle and she shortly after began having diarrhea. She states that she has had diarrhea approximately 7-10 episodes per day every day since last Wednesday. She reports that is brown in color sometimes clear sometimes loose formed stool and sometimes watery. She reports some associated nausea. Denies any abdominal pain. No urinary complaints or vaginal discharge. No fevers. She reports that she had a COVID test about 2 months ago which was negative. She does come into contact with her daughter regularly who works in a doctor's office where she reports there is no screening being done. She is unsure if she has had can new contact with [employer]. She denies any recent travel. No chest pain or shortness of breath. No sore throat. Reports that she is able to drink liquids mostly with no problem but today after eating a ham and cheese sandwich she feels like it is sitting lower in the throat just above her chest. No difficulty breathing or trouble with s ecretions. TRAVEL OUTSIDE OF THE [place] IN LAST 30 DAYS: No - Related Data Allergies/Adverse Reactions: codeine [Codeine] Adverse Reaction (Verified 02/22/19 19:11) Home Medications: Effexor, amlodipine, trazadone, topamax, buspar Past Medical History - Social History Smoking Status: Current Every Day Smoker Frequency of alcohol use: None Drug Abuse: None Family History: Reviewed & Not Pertinent, COPD - Past Medical History Cardiac Medical History: Reports: Hx Hypercholesterolemia, Hx Hypertension Denies: Hx Coronary Artery Disease, Hx Heart Attack Pulmonary Medical History: Reports: Hx Bronchitis, Hx COPD, Hx Pneumonia Denies: Hx Asthma, Hx Tuberculosis Neurological Medical History: Reports: Hx Seizures - 2009, 2010. Denies: Hx Cerebrovascular Accident Endocrine Medical History: Reports: Hx Diabetes Mellitus Type 2 Renal/ Medical History: Denies: Hx Peritoneal Dialysis Musculoskeletal Medical History: Reports Hx Arthritis Psychiatric Medical History: Reports: Hx Bipolar Disorder, Hx Depression Past Surgical History: Reports: Hx Hysterectomy, Hx Orthopedic Surgery - Cervical fusion. Denies: Hx Pacemaker - Immunizations Hx Diphtheria, Pertussis, Tetanus Vaccination: No Review of Systems - Review of Systems Constitutional: denies: Fever EENT: denies: Throat pain Cardiovascular: denies: Chest pain Respiratory: denies: Short of breath Gastrointestinal: denies: Abdominal pain Genitourinary: denies: Pain Female Genitourinary: denies: Vaginal discharge Musculoskeletal: denies: Neck pain Skin: denies: Change in color Hematologic/Lymphatic: denies: Easy bleeding Neurological/Psychological: denies: Headaches Physical Exam - Vital signs Vitals: Temp 98.2 F 11/24/19 14:20 - General General appearance: Appears well, Alert In distress: None - HEENT Head: Normocephalic, Atraumatic Eyes: Normal Pupils: PERRL Pharynx: Other - Patent airway. Handling secretions well. No sublingual or submental swelling. No trismus. - Respiratory Respiratory status: No respiratory distress Chest status: Nontender Breath sounds: Normal Chest palpation: Normal - Cardiovascular Rhythm: Regular Heart sounds: Normal auscultation - Abdominal Inspection: Normal Distension: No distension Bowel sounds: Normal Tenderness: Nontender Organomegaly: No organomegaly - Neurological Neuro grossly intact: Yes Cognition: Normal Orientation: AAOx4 - Psychological Associated symptoms: Anxious - Skin Skin Temperature: Warm Skin Moisture: Dry Skin Color: Normal Course - Re-evaluation Re-evalutation: 11/24/19 18:06 Patient called me back into the room at this time. She has resulted some basic blood work has received a bolus of fluids as well as glucagon. She states "I am feeling much better". She states that she can no longer wait for further testing. We discussed with her that CT advised they would be coming to get her in approximately 25 minutes for scan and that this would give us further insight into her chief complaint of diarrhea. She stated that she has a close relationship with her primary doctor and she feels this is something she can get done on an outpatient basis since she feels so much better after fluids and medicine here. We discussed her risks of leaving AGAINST MEDICAL ADVICE including but not limited to sudden or permanent neurological disability. She verbalized understood but stated she still wished to leave AGAINST MEDICAL ADVICE. Patient is of sound mind and mental capacity to make informed decision. She is aware she is free to return here at any time to continue her care. She signed a form understanding the above discussion regarding her leaving AGAINST MEDICAL ADVICE. Advise she call her doctor soon as possible for further care. Advise she return here or any ER immediately with any new, persistent or worsening symptoms. She verbalized understood and agreed. Witnessed by nurse. - Vital Signs Vital signs: Temp Pulse Resp BP Pulse Ox 98.2 F 85 20 128/84 H 100 11/24/19 14:28 11/24/19 14:28 11/24/19 14:28 11/24/19 14:28 11/24/19 14:28 - Laboratory Result Diagrams: 11/24/19 16:50 11/24/19 16:50 Discharge - Discharge Clinical Impression: Diarrhea Qualifiers: Diarrhea type: unspecified type Qualified Code(s): R19.7 - Diarrhea, unspecified Condition: Stable Disposition: AGAINST MEDICAL ADVICE Instructions: Diarrhea, Nonspecific ([facility]) Additional Instructions: You have chosen to leave today AGAINST MEDICAL ADVICE. Please call your doctor as soon as possible for further care and management. Please return here or any ER immediately with any new, persistent or worsening symptoms. Referrals: CONSTANTINO QUEEN PA [Primary Care Provider] - Follow up as needed
[2019-11-24] MEDS ORDERED: LORAZEPAM INJ 2 MG/1 ML VIAL IV ONE (16:30)
--- NOTE | 2019-11-24 16:44 | RADIOLOGY REPORT (SQ) ---
EXAM DESCRIPTION: CHEST SINGLE VIEW IMAGES COMPLETED DATE/TIME: 11/24/2019 4:22 pm REASON FOR STUDY: diff swallowing COMPARISON: PA and lateral views of the chest from 03/14/2019. EXAM PARAMETERS: NUMBER OF VIEWS: One view. TECHNIQUE: An AP view of the chest was obtained. RADIATION DOSE: NA LIMITATIONS: None. FINDINGS: LUNGS AND PLEURA: No consolidation, pleural effusion or pneumothorax. MEDIASTINUM AND HILAR STRUCTURES: No mediastinal or hilar contour abnormality. HEART AND VASCULAR STRUCTURES: The cardiac silhouette and pulmonary vasculature are within normal [place] its. BONES: No acute findings. HARDWARE: None in the chest. OTHER: No other finding. IMPRESSION: No acute cardiopulmonary process. TECHNICAL DOCUMENTATION: JOB ID: [id number] 2010 [employer]- All Rights Reserved Reading location - IP/workstation name: [email or web address]
[2019-11-24 17:27] LABS: ABSOLUTE EOSINOPHILS # (AUTO) 0.2 10^3/uL (0.0-0.6); ABSOLUTE LYMPHOCYTES (AUTO) 2.6 10^3/uL (0.5-4.7); ABSOLUTE MONOCYTES (AUTO) 0.5 10^3/uL (0.1-1.4); BASOPHILS % (AUTO) 0.5 % (0-2); HEMATOCRIT 40.8 % (36.0-47.0); HEMOGLOBIN 13.9 g/dL (12.0-15.5); LYMPHOCYTES % (AUTO) 27.6 % (13-45); MEAN CORPUSCULAR HGB CONC 34.1 g/dL (32.0-36.0); MEAN CORPUSCULAR VOLUME 88 fl (80-97); MONOCYTES % (AUTO) 5.7 % (3-13); PLATELET COUNT 354 10^3/uL (150-450); RED BLOOD COUNT 4.64 10^6/uL (3.72-5.28); RED CELL DISTRIBUTION WIDTH 13.3 % (11.5-14.0); SEGMENTED NEUTROPHILS % (AUTO) 64.2 % (42-78); TOTAL CELLS COUNTED % (AUTO) 100 %; WHITE BLOOD COUNT 9.4 10^3/uL (4.0-10.5)
[2019-11-24 17:46] LABS: ALBUMIN 4.4 g/dL (3.5-5.0); ALKALINE PHOSPHATASE 104 U/L (38-126); ANION GAP 11 (5-19); ASPARTATE AMINO TRANSFERASE 20 U/L (14-36); BILIRUBIN,DIRECT 0.3 mg/dL (0.0-0.4); BILIRUBIN,TOTAL 0.4 mg/dL (0.2-1.3); BLOOD UREA NITROGEN 7 mg/dL (7-20); CALCIUM 9.6 mg/dL (8.4-10.2); CARBON DIOXIDE 27 mmol/L (22-30); CHLORIDE 106 mmol/L (98-107); GLUCOSE 100 mg/dL (75-110); POTASSIUM 3.7 mmol/L (3.6-5.0); TOTAL PROTEIN 6.9 g/dL (6.3-8.2)
== END 2019-11-24 18:10 | disposition left against medical advice (07) ==
LOC: ER 14:19
DX: R19.7 Diarrhea, unspecified (principal); R11.0 Nausea; Z88.8 Allergy status to other drugs, medicaments and biological substances; Z79.899 Other long term (current) drug therapy; F17.200 Nicotine dependence, unspecified, uncomplicated; I10 Essential (primary) hypertension; E11.9 Type 2 diabetes mellitus without complications; Z20.828 Contact with and (suspected) exposure to other viral communicable diseases
CPT/HCPCS: 99284; 96361; 96374; 96375; 36415; 83690; 85025; 80053; 71045; U0003; J1610; J2405; J7030; C9803; 87635